=== PATIENT | female | born 1945 | race Caucasian/White ===

== ENCOUNTER → 2023-07-20 13:50 | Outpatient (REF) | payer OTHER, SELFPAY | LOC: WDC 13:50 | PROVIDERS: ATTENDING PHYSICIAN Family Medicine | DX: Z12.31 Encounter for screening mammogram for malignant neoplasm of breast (principal) | CPT/HCPCS: 77063; 77067 ==

== ENCOUNTER 2023-08-29 15:42 | Inpatient (IN) | payer OTHER, SELFPAY ==
[2023-08-29] VITALS (10 sets, daily range): BP systolic 101–157; BP diastolic 58–97; BMI 25.6
--- NOTE | 2023-08-29 10:12 | ED.GENMED ---
History of Present Illness
General
Chief Complaint: Fall
Source: patient
Time Seen by Provider: 08/29/23 10:08
History of Present Illness
History of Present Illness:
77yo right hand dominant female with a history of hypertension, hyperlipidemia, lung cancer, and gastroparesis presenting via EMS for evaluation after a fall. The fall occurred around 5 AM this morning. Patient states she does not remember the
fall and the only thing she remembers is waking up on the ground with a headache. She believes that she hit her head on the bedside table. She believes she rolled out of bed in her sleep. She denies any preceding dizziness, chest pain, shortness of
breath. She was able to get back in bed after the fall. Her only other complaints are right upper arm pain and mild neck discomfort. She denies any chest pain, abdominal pain, back pain, fevers, vomiting. She is not taking any blood thinners.
Patient lives alone.
Past History
Past History
ED Past Medical History: Cancer, GERD, HTN, Hypercholesterolemia, NIDDM and Other (Peripheral vascular disease, migraines, Crohn's, thalassemia)
ED Past Surgical History: Cholecystectomy and Other
Patient has exhibited threatening behavior?: No
PSI?: No
Social History
Tobacco: Former smoker
Alcohol: None
Drug: None
Personal:
Living: alone
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
Family History
Family History: Other (Noncontributory)
Phy Exam
Physical Exam
Physical Exam:
Patient awake, alert, talkative. No acute distress noted.
General Physical Exam
General Presentation: well appearing and no apparent distress
General Skin: warm and dry
General Habitus: normal and elderly
General Mental: alert
ENT Exam
ENT Exam: TM's normal (No hemotympanum) and normocephalic (No external signs of head trauma)
Additional ENT: Full ROM of cervical spine
Eye Exam
Eye Exam: PERRL
Cardiovascular Exam
Cardiovascular Exam: regular rate/rhythm and no murmur
Pulmonary Exam
Pulmonary Exam: lungs clear, no respiratory distress, no crackles and no wheezing
Gastrointestinal Exam
Gastrointestinal Exam: non tender, soft and non distended
Neurological Exam
Neurological Exam: alert and no motor deficits
Harvel Coma Scale
Eye Opening: Spontaneous
Verbal Response: Oriented
Motor Response: Obeys Commands
GCS Total Score: 15
Musculoskeletal Exam
Musculoskeletal Exam: other (R shoulder: No deformity or ecchymosis noted. ROM decreased 2/2 pain. +Generalized tenderness to R upper arm. 2+ radial pulse. ROM of elbow and wrist intact.)
Course
Orders/Labs/Results
Orders:
Orders
08/29/23 10:09
Electrocardiogram (*1) Urgent
Reason for Study: Other
Other Reason for Exam: Fall
CT Cervical Spine W/o Iv Contr Urgent
Comment:
Reason For Exam: Fall, neck pain
CT Head W/o Iv Contrast Urgent
Comment:
Reason For Exam: Fall, head strike
EKG- Treatment ONCE
CR Humerus - Right Min 2 View* Urgent
Comment:
Reason For Exam: Fall, injury
CR Shoulder - Right Min 2 View Urgent
Comment:
Reason For Exam: Fall, pain
08/29/23 10:10
Hydrocodone 5/APAP 325 [Henning 5/325] 1 tablet PO NOW STA
08/29/23 10:17
Complete Blood Count/With Diff Urgent
Comprehensive Metabolic Panel Urgent
Troponin I Urgent
08/29/23 10:43
CR Chest - 2 Views Urgent
Comment:
Reason For Exam: Fall
08/29/23 11:35
Sling Right-Treatment ONCE
08/29/23 12:06
PT Consult [Pt Eval And Treat] Urgent
Activity Level: Out of Bed- Ad [place]
08/29/23 12:07
Case Management Consult ONCE
Case Management Consult: Discharge Planning
08/29/23 13:59
Hydrocodone 5/APAP 325 [Henning 5/325] 1 tablet PO NOW STA
Ondansetron Injectable [Zofran] 4 mg IV NOW STA
08/29/23 15:26
Admit/Transfer Patient As Directed
Co-Sign Provider:
Level of Care: Inpatient admission
Assign to:: Medical/Surgical
Physician / Group: Cori
Diagnosis: Fall with amb dysfunction and rue fracture
Reason for Hospitalization: above
Expected length of stay greater than two midnights?: Yes
ELOS- Estimated Length of Stay in days: 2
I certify the patient meets the requirements for IP care: Yes
PRN Pain Medication Management As Directed
May give lesser potent ordered pain med per pt: Yes
preference::
Protocol:: Medication orders for pain may be administered in a
manner that supports deferring to patient preference
when the pt is:
-Requesting an ordered lesser potent pain medication.
Least to most potent pain medications are defined as:
acetaminophen < NSAID < tramadol < opioids (morphine,
oxycodone, hydromorphone).
- Requesting a lesser dose of the same medication IF
ORDERED.
- Requesting a less intrusive route of administration
if both routes are prescribed by the provider (PO <
IV).
08/29/23 15:28
Code Status As Directed
Resuscitation Status: Full Code
08/29/23 15:32
Enoxaparin Sodium [Lovenox] 40 mg SC NOW STA
08/29/23 16:00
Acetaminophen [Tylenol] 1,000 mg PO TID
Abnormal Lab Results
08/29/23
10:17
RBC 5.66 H 10^6/uL
(4.20-5.40)
MCV 69.8 L fL
(81.0-99.0)
MCH 23.3 L pg
(27.0-31.0)
Absolute Neuts (auto) 7.0 H 10^3/uL
(1.4-6.5)
Neutrophils % 76.5 H %
(42.2-75.2)
Lymphocytes % 16.2 L %
(20.5-51.1)
Glucose 105 H mg/dl
(70-99)
08/29/23 10:17
08/29/23 10:17
Vital Signs
Initial and Last Documented VS:
Initial Vital Signs
Pulse Resp BP Pulse Ox
94 18 157/97 99
08/29/23 09:56 08/29/23 09:56 08/29/23 09:56 08/29/23 09:56
Last Documented Vital Signs
Temp Pulse Resp BP Pulse Ox
98.4 F 81 16 101/66 99
08/29/23 10:00 08/29/23 14:00 08/29/23 14:00 08/29/23 14:00 08/29/23 12:15
MDM/Problems Addressed
Differential Diagnosis Includes:
77yoF here after a fall this morning. She only remembers waking up on the ground. She believes she rolled out of bed. +Head strike, c/o headache. No thinners. Also having R upper arm pain. No external signs of head trauma on exam. GCS is 15. Vital
signs stable. Differential diagnosis includes but is not limited to: mechanical fall, syncope, closed head injury, concussion, intracranial hemorrhage, fracture
Initial ED plan: Check cardiac labs, EKG, R humerus/shoulder x-rays, CT head, and CT cervical spine. Will give Henning for pain as she takes this at home.
*EKG
Interpreted by ED Provider?: Yes
EKG Intrepretation Date: 08/29/23
EKG Intrepretation Time: 11:01
Heart Rate: 81
Rate: normal
Rhythm: sinus and PVC's
[place]: normal axis
QRS Pattern: normal QRS
Ischemia: no ischemia
*Critical Care Note
Total Time (30-74mins, 75-104mins- exclusive of procedures): Not Applicable
Update Note
Update Note:
Imaging shows a proximal humerus fracture. No other traumatic injuries on imaging. Labs overall unremarkable. EKG shows NSR without ischemic changes and troponin is normal. Patient lives alone and uses a walker/cane at times. She was evaluated by
PT. Physical therapy recommending short term rehab. Case management unable to place patient today. She was admitted for further management.
ED Attending Note
-
Portions of this chart may have been created with voice recognition software.� Occasional wrong word or��sound alike� substitutions may have occurred due to the inherent limitations of voice recognition software.
Discharge Plan
Departure
Patient Disposition: Admit
Date of Disposition: 08/29/23
Time of Disposition: 13:54
Presentation/result/management discussed w/ accepting MD/DO: Hospitalist
Discharge Problem:
Closed fracture of right proximal humerus, Accidental fall from bed
Interventions
Interventions:
*Risk Screen - Suicide Last Done: 08/29/23 10:11
*General Assessment Last Done: 08/29/23 10:03
*Neglect/Abuse Screening Last Done: 08/29/23 10:11
ED- Fall Risk Assessment Last Done: 08/29/23 10:03
*ED COVID-19 Vaccine History Last Done: 08/29/23 10:11
ED-Musculoskeletal Assessment Last Done: 08/29/23 10:04
ED- Neurological Assessment Last Done: 08/29/23 10:03
ED-Skin Assessment Last Done: 08/29/23 10:04
[2023-08-29] MEDS: NORCO 5/325 1 TABLET PO ×2 (10:15→14:11)
[2023-08-29 10:39] LABS: % Basophils 0.5 % (0-2); % Eosinophils 0.1 % (0-6); % Immature Granulocytes 0.4 % (0-0.5); % Lymphocytes 16.2 % (20.5-51.1); % Monocytes 6.3 % (1.7-9.3); % Neutrophils 76.5 % (42.2-75.2); Absolute Basophils 0.1 10^3/uL (0-0.2); Absolute Lymphocytes 1.5 10^3/uL (1.2-3.4); Absolute Monocytes 0.6 10^3/uL (0.1-0.6); Hematocrit 39.5 % (37.0-47.0); Hemoglobin 13.2 g/dL (12.0-16.0); Mean Corp Hgb Conc. 33.4 g/dL (33.0-37.0); Mean Corpuscular Hgb 23.3 pg (27.0-31.0); Mean Corpuscular Volume 69.8 fL (81.0-99.0); Mean Platelet Volume 10.3 fL (7.4-10.4); Nucleated Red Blood Cells % 0 %; Platelet Count 276 10^3/uL (130-400); Red Blood Cell Count 5.66 10^6/uL (4.20-5.40); Red Cell Dist. Width 14.4 % (11.5-14.5); White Blood Cell Count 9.1 10^3/uL (4.8-10.8)
[2023-08-29 10:50] LABS: ALT (SGPT) 16 U/L (0-35); AST (SGOT) 21 U/L (14-36); Albumin 4.5 g/dl (3.5-5.0); Alkaline Phosphatase 100 U/L (38-126); Blood Urea Nitrogen 12 mg/dl (7-17); Calcium 9.9 mg/dl (8.4-10.2); Carbon Dioxide 25 mmol/L (22-30); Chloride 101 mmol/L (98-107); Glucose 105 mg/dl (70-99); Potassium 3.9 mmol/L (3.5-5.1); Sodium 136 mmol/L (135-145); Total Bilirubin 0.6 mg/dl (0.2-1.3); Total Protein 7.4 g/dl (6.3-8.2); eGFR > 60.00
[2023-08-29 11:05] LABS: Troponin I < 0.012 ng/ml
--- NOTE | 2023-08-29 14:07 | CM ---
CM following re: discharge planning.
CM consulted to assist pt with discharge planning.
Reviewed pt's chart, met with pt.
Pt is a 77 year old female, arrived to ED for evaluation after a fall.
Pt reports she lives alone in an apartment 1st floor, 13 steps to enter, has supportive daughter who works as RT at [employer]. Pt described herself as independent in all areas [employer], ambulated with a cane, daughter helps as needed.
PT evaluations noted - SNF level of care recommended. Pt is awre, expressed her agreement. A list of SNFs provided to the pt. Following SNFs preferred: [facility], [facility], [facility], [facility]. A referral to above SNFs made. Pt will need an auth from [facility]
insurance once SNF confirmed.
PCP: Marlon vergara
pharmacy: [facility].
D/C plan: preferred and accepted SNF.
CM will follow to assist pt with discharge to a preferred SNF.
[2023-08-29] MEDS: ZOFRAN 4 MG IV (14:11)
[2023-08-29] MEDS: LOVENOX 40 MG SC (15:52)
--- NOTE | 2023-08-29 16:52 | HPS.HSE ---
Family Physician
-
Family Physician: Marlon Hunter
Chief Complaint
-
Fall with right upper extremity pain.
History of Present Illness
Patient is 77-year-old female with history of lung carcinoma status post lobectomy, gastroparesis, hypertension, migraine who presents to the emergency room after fall. Patient describes falling of the bed while asleep at night. She could not
recall incident, although woke up on the floor with pain in the right upper extremity. She admits striking her head against the table. Otherwise patient was in her normal state of health prior to incident. She lives independently at home.
In the emergency room patient was found to be afebrile, hemodynamically stable with no neurologic abnormalities.
Additional workup revealed right humerus fracture. Patient was placed in sling. Elevated with physical therapy with recommendation of continuous assessment and placement to fdc facility. Patient complains of significant pain at the
right shoulder and right upper extremity while in sling.
Medical History
Past Medical History
Past Medical History: Reports HTN and Other (Lung carcinoma status post lobectomy. Gastroparesis.)
Past Surgical History: Reports Other (Lobectomy)
Social History
Tobacco: Former Smoker
Alcohol: None
Drug: None
Personal: Single
Living: Alone
Employment: Retired
Family History
Family History: Not pertinent
Allergies / Home Medications
Allergies reflects when Allergies were last updated in [facility].
Home Medications with original date entered in [facility]
Allergy/Medication List:
Allergies
Allergy/AdvReac Type Severity Reaction Status Date / Time
cephalexin [From Keflex] Allergy Hives Verified 02/22/23 03:14
hydromorphone HCl Allergy Migraines Verified 02/22/23 03:14
[From Dilaudid]
Influenza Virus Vaccines Allergy Unknown Verified 02/22/23 03:14
NSAIDS (Non-Steroidal Allergy Migraines Verified 02/22/23 03:14
Anti-Inflamma
[Nsaids]
Qmlgenm-IAH-XvH Reductase Allergy acute Verified 02/22/23 03:14
Inhibitor inflammation
[Tgenbgb-Hnm-Uaa Reductase of liver
Inhibitor]
Sulfa (Sulfonamide Allergy Hives Verified 02/22/23 03:14
Antibiotics)
Home Medications
amlodipine 10 mg tablet 10 mg PO DAILY Blood pressure 11/20/09
losartan 25 mg tablet 25 mg PO BID Blood pressure 11/18/21
ondansetron 4 mg disintegrating tablet 8 mg PO Q6HPRN PRN nausea and vomiting 01/07/22
lorazepam 0.5 mg tablet 0.5 mg PO BIDPRN PRN Anxiety 02/22/23
acetaminophen 500 mg tablet (Tylenol Extra Strength) 500 mg PO Q6HPRN PRN mild pain 08/29/23
hydrocodone 5 mg-acetaminophen 325 mg tablet 1 tab PO BIDPRN PRN moderate pain 08/29/23
magnesium hydroxide 400 mg/5 mL oral suspension (Milk of Magnesia) 30 ml PO DAILYPRN PRN constipation 08/29/23
pantoprazole 40 mg tablet,delayed release (Protonix) 40 mg PO DAILY Gastrointestinal Issue 08/29/23
polyethylene glycol 3350 17 gram oral powder packet 17 g PO HS Constipation 08/29/23
potassium 95 mg tablet 900 mg PO DAILY Supplement 08/29/23
Review of Systems
-
A 12 point ROS was completed and negative except as noted: Yes
Physical Exam
Vital Signs
Vital Signs
Temp Pulse Resp BP Pulse Ox
98.4 F 81 16 101/66 99
08/29/23 10:00 08/29/23 14:00 08/29/23 14:00 08/29/23 14:00 08/29/23 12:15
Physical Exam
General: Well Developed, Well Nourished and No Apparent Distress
HEENT: NormoCephalic, Moist mucous membranes and Atraumatic
Respiratory: Clear
Cardiac: S1/S2 and Regular Rhythm; No Murmur or Rub
GI: Soft, Non Tender, Non Distended and Normal Bowel Sounds; No Organomegaly
Rectal: Deferred by Provider
Musculoskeletal: No Clubbing, No Cyanosis and No Edema
Skin: No Rash
Neuro: Nonfocal/grossly intact
Laboratory Results
-
08/29/23 10:17
08/29/23 10:17
Laboratory Results
Total Bilirubin 0.6 mg/dl (0.2-1.3) 08/29/23 10:17
AST 21 U/L (14-36) 08/29/23 10:17
ALT 16 U/L (0-35) 08/29/23 10:17
Alkaline Phosphatase 100 U/L (38-126) 08/29/23 10:17
Troponin I < 0.012 ng/ml 08/29/23 10:17
Impression/Plan
-
IMPRESSION:
Mechanical fall with right humerus fracture.
Persistent pain
Ambulatory dysfunction
Failure to thrive
Conditions prior to admission:
History of toxic metabolic encephalopathy manifested with acute visual hallucinations while on tramadol (admission)
History of small chronic periventricular infarct in the right basal ganglia/chronic lacunar infarct.
Lung carcinoma status post left upper lobe resection January 2023.
History of gastroparesis.
Migraine
Essential hypertension
Dyslipidemia.
PLAN:
Right proximal humerus fracture
Sling applied
Orthopedic consultation
Pain control 1 g of Tylenol 3 times daily with addition of oxycodone.
Patient has prior history of metabolic encephalopathy related to tramadol.
Physical therapy evaluation
Possible placement to fdc facility for rehab
History of lung carcinoma status post upper lobe resection 02/04.
Respiratory status stable.
Essential hypertension. Continue amlodipine, losartan.
Gastroparesis.
Regular diet.
Continue Zofran and PPI
Full code
DVT prophylaxis Lovenox
[2023-08-29] MEDS: TYLENOL PO (17:21)
--- NOTE | 2023-08-29 17:23 | PTCARENOTE ---
Pt arrived to [facility] from ED via stretcher. Pt RUE in sling, +radial pulse. Patient states 10/10 pain in RUE and states she is mildly nauseous. Oriented to call ivan and room, bed locked and in lowest position, call ivan within reach.
[2023-08-29] MEDS: ROXICODONE 5 MG PO (17:49)
[2023-08-29] MEDS: NORVASC 10 MG PO (17:52)
[2023-08-29] MEDS: TYLENOL 1000 MG PO (21:17)
[2023-08-29] MEDS: COZAAR 25 MG PO (21:18)
[2023-08-29] MEDS: ATIVAN 0.5 MG PO (21:18)
[2023-08-29] MEDS: MIRALAX PO (21:23)
[2023-08-30] MEDS: ZOFRAN ODT (ORALLY DISINTEGRATING) 8 MG PO (02:55)
[2023-08-30] MEDS: ROXICODONE 5 MG PO (02:55)
--- NOTE | 2023-08-30 04:28 | DOWNTIME ---
There was a [employer] Advisor Downtime on 08/30/2023 from 0100 to 08/30/2023 at 0255. Downtime documentation of patient's care, including medication administrations, has been reconciled in the electronic record per guidelines. Refer to the
patient's paper chart under the miscellaneous tab to see printed paper medication records and downtime forms.
[2023-08-30] MEDS: TYLENOL 1000 MG PO (07:07)
--- NOTE | 2023-08-30 07:22 | CON.ORTHO ---
Consultation
-
Date/Time Consultation Requested: 08/29/23 @17:30
Date/Time Consultation Performed: 08/30/23 @7am
Requesting Provider: Cori
Performing Provider: Joyce Tomlin PA-C/Abdelrahman Decker MD
Reason for Consultation: right humerus fracture
Consultation - Orthopedics
History
HPI: 77yo female admitted to the hospital following a fall out of bed yesterday morning. Patient reports that she is not sure exactly what happened but she woke up on the floor. She may have possibly hit her head and she did have a workup in the ER
which was negative. She was complaining of right arm pain as well. Xrays showed right proximal humerus fracture. She denies any other injuries or any numbness/tingling. She is right hand dominant. She did get good relief of pain last night with
Tylenol and Ativan
PAST MEDICAL HISTORY: lung cancer, gastroparesis, HTN, migraine
PAST SURGICAL HISTORY: left upper lobectomy January 2023, bile duct stent placement
SOCIAL HISTORY: former smoker, denies alcohol. occasionally ambulate with a cane. lives alone
FAMILY HISTORY: Non contributory
REVIEW OF SYSTEMS: 12 point review of systems obtained and negative except those mentioned in the HPI
Allergies / Home Medications
Allergy/AdvReac Type Severity Reaction Status Date / Time
cephalexin [From Keflex] Allergy Hives Verified 02/22/23 03:14
Influenza Virus Vaccines Allergy Unknown Verified 02/22/23 03:14
NSAIDS (Non-Steroidal Allergy Migraines Verified 02/22/23 03:14
Anti-Inflamma
[Nsaids]
Dlbkxro-DPE-DdG Reductase Allergy acute Verified 02/22/23 03:14
Inhibitor inflammation
[Wmgwmox-Urk-Xzv Reductase of liver
Inhibitor]
Sulfa (Sulfonamide Allergy Hives Verified 02/22/23 03:14
Antibiotics)
tramadol AdvReac Severe Unknown Verified 08/29/23 20:45
�Medication �Instructions �Recorded
amlodipine 10 mg tablet 10 mg PO DAILY Blood pressure 11/20/09
losartan 25 mg tablet 25 mg PO BID Blood pressure 11/18/21
ondansetron 4 mg disintegrating 8 mg PO Q6HPRN PRN nausea and 01/07/22
tablet vomiting
lorazepam 0.5 mg tablet 0.5 mg PO BIDPRN PRN Anxiety 02/22/23
acetaminophen 500 mg tablet 500 mg PO Q6HPRN PRN mild pain 08/29/23
(Tylenol Extra Strength)
hydrocodone 5 mg-acetaminophen 325 1 tab PO BIDPRN PRN moderate pain 08/29/23
mg tablet
magnesium hydroxide 400 mg/5 mL 30 ml PO DAILYPRN PRN constipation 08/29/23
oral suspension (Milk of Magnesia)
pantoprazole 40 mg tablet,delayed 40 mg PO DAILY Gastrointestinal 08/29/23
release (Protonix) Issue
polyethylene glycol 3350 17 gram 17 g PO HS Constipation 08/29/23
oral powder packet
potassium 95 mg tablet 900 mg PO DAILY Supplement 08/29/23
Vital Signs / Lab Results
Temp Pulse Resp BP Pulse Ox
98.9 F 78 20 119/58 95
08/29/23 23:25 08/29/23 23:25 08/29/23 23:25 08/29/23 23:25 08/29/23 23:25
08/29/23 10:17
08/29/23 10:17
RADIOGRAPHIC FINDINGS:
Xrays right humerus and shoulder show mildly impacted fracture of the neck of the proximal right humerus. Cannot exclude fracture extension into the right humeral head.
PHYSICAL EXAM:
General: no acute distress
HEENT: NCAT, sclera anicteric, normal hearing
Heart: No JVD
Lungs: normal work of breathing on room air
MSK: Focused exam of right upper extremity with skin intact. no discolorations. mild edema. +TTP over proximal humerus and upper arm. ROM shoulder deferred. Full ROM of elbow, wrist, and hand. Sensation intact to light touch. Cap refill <2secs
Assessment / Plan
ASSESSMENT: 77yo female with right proximal humerus fracture following a fall
PLAN: Unfortunately, Ms. Webber has sustained a right proximal humerus fracture following her fall yesterday morning. This is amenable to nonoperative management. She is to be non weight bearing to the right arm. She is to wear the sling at all
times, removing for dressing and bathing only. OK for range of motion of hand, wrist, and elbow. PT/OT evaluation. Continue with pain management as needed. Ice to shoulder as needed. Case management consult for discharge planning. Follow up
outpatient in one week for repeat xrays. Orthopedics with sign off for now. Please reach out with any questions or concerns.
[2023-08-30 07:36] VITALS: BP 110/71
[2023-08-30 08:04] VITALS: BP 106/66; BP 109/63; BP 110/71; PULSE 84; PULSE 88; PULSE 99
[2023-08-30] MEDS: NORVASC 10 MG PO (08:15)
[2023-08-30] MEDS: PROTONIX 40 MG PO (08:15)
[2023-08-30] MEDS: KCL 10 MEQ PO (08:15)
[2023-08-30] MEDS: COZAAR 25 MG PO ×2 (08:15→20:18)
[2023-08-30] MEDS: ATIVAN 0.5 MG PO ×2 (09:36→20:11)
[2023-08-30 11:07] VITALS: BP 119/77; BP 123/76
[2023-08-30 11:29] VITALS: BP 119/77; BP 123/76; PULSE 95; O2SAT 96
[2023-08-30] MEDS: NORCO 5/325 1 TABLET PO (13:17)
[2023-08-30 15:58] VITALS: BP 112/61
--- NOTE | 2023-08-30 15:59 | CM ---
Reviewed the chart notes and spoke with the patient at the bedside. PT/OT recommending SNF at this time. Discussed with the patient. Patient would have preferred home, but is agreeable to short term SNF/rehab prior to transitioning home. Patient
agreeable to referrals being sent in the area. Referrals with [facility] sent. CM continues to be available to patient/family and is monitoring medical plan for needs at discharge.
Plan: Discharge to SNF/rehab once bed found and precert obtained.
--- NOTE | 2023-08-30 17:11 | W.PN.HOSP.TC ---
Today's Communication/Plan
-
PT/OT
[facility]
Assessment / Plan
Assessment / Plan
IMPRESSION:
Mechanical fall with right humerus fracture.
Persistent pain
Ambulatory dysfunction
Failure to thrive
Conditions prior to admission:
History of toxic metabolic encephalopathy manifested with acute visual hallucinations while on tramadol (admission)
History of small chronic periventricular infarct in the right basal ganglia/chronic lacunar infarct.
Lung carcinoma status post left upper lobe resection January 2023.
History of gastroparesis.
Migraine
Essential hypertension
Dyslipidemia.
PLAN:
Right proximal humerus fracture
Sling applied
Orthopedic consultation appreciated with recommendation of conservative management
Pain control with hydrocodone and acetaminophen
Patient has prior history of metabolic encephalopathy related to tramadol.
Physical therapy evaluation
Possible placement to penitentiary facility for rehab
History of lung carcinoma status post upper lobe resection 02/04.
Respiratory status stable.
Essential hypertension. Continue amlodipine, losartan.
Gastroparesis.
Regular diet.
Continue Zofran and PPI
Full code
DVT prophylaxis Lovenox
Anticipated Discharge: 24 - 48 hours
Subjective/Interval History
-
Date of Service: August 30, 2023
Objective Data
-
Vital Signs:
Vital Signs
Temp Pulse Resp BP Pulse Ox
99.0 F 79 14 112/61 96
08/30/23 15:58 08/30/23 15:58 08/30/23 15:58 08/30/23 15:58 08/30/23 15:58
Physical Exam
-
General: Well Developed and No Apparent Distress
HEENT: Normocephalic, Atraumatic and Moist Mucous Membranes
Respiratory: Clear to Auscultation
Cardiac: Regular Rhythm and S1/S2; Negative Murmur, Rub or Gallop
GI: Soft, Nontender, Nondistended and Normal Bowel Sounds; Negative Organomegaly
Rectal: Deferred by Provider
Musculoskeletal: No Clubbing, No Cyanosis and No Edema
Skin: Negative Rash
Neuro: Nonfocal/Grossly Intact
[2023-08-30] MEDS: MILK OF MAGNESIA 30 ML PO (18:10)
[2023-08-30] MEDS: MIRALAX 17 GRAMS PO (20:11)
[2023-08-30] MEDS: TYLENOL 500 MG PO (20:15)
[2023-08-30 23:59] VITALS: BP 124/62
[2023-08-31] MEDS: ZOFRAN ODT (ORALLY DISINTEGRATING) 8 MG PO ×2 (05:50→19:30)
[2023-08-31] MEDS: NORCO 5/325 1 TABLET PO ×2 (05:55→19:30)
[2023-08-31 07:53] VITALS: BP 124/68
[2023-08-31] MEDS: KCL 10 MEQ PO (08:08)
[2023-08-31] MEDS: PROTONIX 40 MG PO (08:08)
[2023-08-31] MEDS: NORVASC 10 MG PO (08:12)
[2023-08-31] MEDS: COZAAR 25 MG PO ×2 (08:12→19:29)
--- NOTE | 2023-08-31 10:09 | CM ---
Addendum entered by Albertina Gomez RN 08/31/23 15:00:
Received call from [facility], [facility] is [id number] and the patient does not have [id number] benefits. CM asked to have list of area SNFs in-network e-mailed. Received e-mail and discussed with the patient of area SNFs.
Patient wants to stay in [facility]. [facility] able to accept. Patient in agreement. Call placed to [facility] ([facility]) [phone] option #3 and [facility]
Once auth obtained patient able to be transported by her daughter.
Addendum entered by Albertina Gomez RN 08/31/23 11:21:
Reviewed the chart notes and spoke with the patient at the bedside. IMM signed and placed on chart.
Original Note:
Reviewed the chart notes. [facility] able to accept the patient. Auth started in [employer]. Pended # [id number]. Clinicals faxed to [phone].
[place] [facility] NPI # [id number]
Dr. Crow Murray NPI # [id number]
[2023-08-31 11:14] VITALS: BP 115/68; BP 119/77; BP 125/77; PULSE 85; PULSE 90; PULSE 99
[2023-08-31] MEDS: TYLENOL 500 MG PO (11:54)
[2023-08-31] MEDS: ATIVAN 0.5 MG PO (11:58)
[2023-08-31 12:18] VITALS: BP 141/75; PULSE 86
[2023-08-31 12:32] VITALS: BP 141/75; PULSE 86
--- NOTE | 2023-08-31 13:58 | W.PN.HOSP.TC ---
Today's Communication/Plan
-
dc
Assessment / Plan
Assessment / Plan
IMPRESSION:
Mechanical fall with right humerus fracture.
Persistent pain
Ambulatory dysfunction
Failure to thrive
Conditions prior to admission:
History of toxic metabolic encephalopathy manifested with acute visual hallucinations while on tramadol (admission)
History of small chronic periventricular infarct in the right basal ganglia/chronic lacunar infarct.
Lung carcinoma status post left upper lobe resection January 2023.
History of gastroparesis.
Migraine
Essential hypertension
Dyslipidemia.
PLAN:
Right proximal humerus fracture
Sling applied
Orthopedic consultation appreciated with recommendation of conservative management
Pain control with hydrocodone and acetaminophen
Patient has prior history of metabolic encephalopathy related to tramadol.
Physical therapy evaluation
Need placement to [facility] facility for rehab
History of lung carcinoma status post upper lobe resection 02/04.
Respiratory status stable.
Essential hypertension. Continue amlodipine, losartan.
Gastroparesis.
Regular diet.
Continue Zofran and PPI
Full code
DVT prophylaxis Lovenox
Medically stable for discharge.
Total time of dc 32 min
Anticipated Discharge: Today
Subjective/Interval History
-
Date of Service: August 31, 2023
Pain from fracture site is okay
Denies any tingling in the right hand or the arm.
No chest pain or shortness of breath
Objective Data
-
Vital Signs:
Vital Signs
Temp Pulse Resp BP Pulse Ox
98.6 F 82 16 120/72 97
08/31/23 07:53 08/31/23 08:12 08/31/23 07:53 08/31/23 08:12 08/31/23 07:53
I&O
08/30/23 08/31/23 09/01/23
06:59 06:59 06:59
Intake Total 480 / 480
Balance 480 / 480
Review of Systems
-
Constitutional: Denies Fever
EENT: Denies Sore Throat
Respiratory: Denies Cough or Trouble Breathing
Abdomen/GI: Denies Abdominal Pain, Nausea or Vomiting
Neuro: Denies Dizzy
Physical Exam
-
General: No Apparent Distress
HEENT: Moist Mucous Membranes
Respiratory: Non Labored Respirations; Negative Accessory Resp Muscle Use
Cardiac: Regular Rhythm and S1/S2
Musculoskeletal: Other (Right arm in the sling-palpable radial pulse. No swelling. Sensation intact)
Psych: Calm
--- NOTE | 2023-08-31 14:02 | W.DS.TRANS ---
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
-
Discharge Instructions:
Discharge Diagnosis/Procedures Right humerus fracture after fall -non surgical
Diet Regular
Activity As tolerated
Driving Restrictions No driving
Bathing Restrictions None
Other Services PT,OT
Instructions:
Stand-Alone Forms:
Changes to Home Medications: No
Discharge Medications:
DC Medications w/original date entered in [employer]
amlodipine 10 mg tablet 10 mg PO DAILY Blood pressure 11/20/09
losartan 25 mg tablet 25 mg PO BID Blood pressure 11/18/21
ondansetron 4 mg disintegrating tablet 8 mg PO Q6HPRN PRN nausea and vomiting 01/07/22
lorazepam 0.5 mg tablet 0.5 mg PO BIDPRN PRN Anxiety 02/22/23
acetaminophen 500 mg tablet (Tylenol Extra Strength) 500 mg PO Q6HPRN PRN mild pain 08/29/23
magnesium hydroxide 400 mg/5 mL oral suspension (Milk of Magnesia) 30 ml PO DAILYPRN PRN constipation 08/29/23
pantoprazole 40 mg tablet,delayed release (Protonix) 40 mg PO DAILY Gastrointestinal Issue 08/29/23
polyethylene glycol 3350 17 gram oral powder packet 17 g PO HS Constipation 08/29/23
potassium 95 mg tablet 900 mg PO DAILY Supplement 08/29/23
hydrocodone 5 mg-acetaminophen 325 mg tablet 1 tab PO BIDPRN PRN moderate pain #12 tabs 08/31/23
Home Medication Changes
Pending Results: No
[2023-08-31 16:00] VITALS: BP 130/72
[2023-08-31] MEDS: MIRALAX PO (21:28)
[2023-08-31] MEDS: MAALOX 30 ML PO (22:14)
[2023-08-31 23:36] VITALS: BP 125/61
[2023-09-01] MEDS: NORCO 5/325 1 TABLET PO (04:01)
[2023-09-01] MEDS: ATIVAN 0.5 MG PO (04:01)
[2023-09-01 07:40] VITALS: BP 105/67
--- NOTE | 2023-09-01 09:21 | CM ---
Addendum entered by Albertina Gomez RN 09/01/23 10:58:
Patient has decided to go home with VN. Selected [facility]. Referral manually faxed to [phone]. Patient's daughter to picking table worker.
Original Note:
Reviewed the chart notes. CM received message from [facility] approval for [facility] Auth# [id number] (08/30-09/03); NRD 09/03; fax clinicals to Elana Hobbs ([phone]); reference #[id number].
[facility] Patient's daughter to provide transportation.
Call report to: [phone]
Fax report to: [phone]
[2023-09-01] MEDS: COZAAR 25 MG PO (09:25)
[2023-09-01] MEDS: NORVASC 10 MG PO (09:25)
[2023-09-01] MEDS: MILK OF MAGNESIA 30 ML PO (09:25)
[2023-09-01] MEDS: KCL 10 MEQ PO (09:25)
--- NOTE | 2023-09-01 10:38 | W.PN.HOSP.TC ---
Today's Communication/Plan
-
DC
Assessment / Plan
Assessment / Plan
IMPRESSION:
Mechanical fall with right humerus fracture.
Ambulatory dysfunction
Failure to thrive
Conditions prior to admission:
History of toxic metabolic encephalopathy manifested with acute visual hallucinations while on tramadol (admission)
History of small chronic periventricular infarct in the right basal ganglia/chronic lacunar infarct.
Lung carcinoma status post left upper lobe resection January 2023.
History of gastroparesis.
Migraine
Essential hypertension
Dyslipidemia.
PLAN:
Right proximal humerus fracture
Sling applied
Orthopedic consultation appreciated with recommendation of conservative management
Pain control with hydrocodone and acetaminophen. cw Laxative tx. [place] today.
Patient has prior history of metabolic encephalopathy related to tramadol.
cw Physical therapy evaluation
[facility]
History of lung carcinoma status post upper lobe resection 02/04.
Respiratory status stable.
Essential hypertension. Continue amlodipine, losartan.
Gastroparesis.
Regular diet.
Continue Zofran and PPI
Full code
DVT prophylaxis Lovenox
Medically stable for discharge.
Total time of dc 32 min
Anticipated Discharge: Today
Subjective/Interval History
-
Date of Service: September 01, 2023
No overnight events
Pain from fracture site is ok
Objective Data
-
Vital Signs:
Vital Signs
Temp Pulse Resp BP Pulse Ox
98.3 F 80 18 105/67 95
08/31/23 23:36 09/01/23 07:40 09/01/23 07:40 09/01/23 07:40 09/01/23 07:40
I&O
08/31/23 09/01/23 09/02/23
06:59 06:59 06:59
Intake Total 480 / 480 660 / 660
Balance 480 / 480 660 / 660
Review of Systems
-
Respiratory: Denies Trouble Breathing
Cardiac: Denies Chest Pain
Abdomen/GI: Reports Constipated; Denies Nausea or Vomiting
Neuro: Denies Dizzy
Physical Exam
-
General: No Apparent Distress
HEENT: Moist Mucous Membranes
Respiratory: Non Labored Respirations; Negative Accessory Resp Muscle Use
Cardiac: Regular Rhythm and S1/S2
GI: Soft
Neuro: AO x 3
Psych: Calm; Negative Confused
[2023-09-01] MEDS: PROTONIX PO (10:41)
[2023-09-01] MEDS: DULCOLAX 10 MG PO (10:47)
[2023-09-01] MEDS: PROTONIX 20 MG PO (10:58)
== END 2023-09-01 12:35 | disposition home health service (06) | DRG 563 ==
LOC: 2 SOUTH 15:42
PROVIDERS: Physician Assistant; ADMITTING PHYSICIAN Internal Medicine; ATTENDING PHYSICIAN Internal Medicine; CONSULT PHYSICIAN Specialist; EMERGENCY PHYSICIAN Emergency Medicine; FAMILY PHYSICIAN Family Medicine
DX: S42.201A Unspecified fracture of upper end of right humerus, initial encounter for closed fracture (principal); K50.90 Crohn's disease, unspecified, without complications; R51.9 Headache, unspecified; M79.621 Pain in right upper arm; E11.43 Type 2 diabetes mellitus with diabetic autonomic (poly)neuropathy; E11.51 Type 2 diabetes mellitus with diabetic peripheral angiopathy without gangrene; K21.9 Gastro-esophageal reflux disease without esophagitis; M54.2 Cervicalgia; I10 Essential (primary) hypertension; K31.84 Gastroparesis; R62.7 Adult failure to thrive; E78.00 Pure hypercholesterolemia, unspecified; W06.XXXA Fall from bed, initial encounter; Y93.84 Activity, sleeping; Z60.2 Problems related to living alone; Y92.003 Bedroom of unspecified non-institutional (private) residence as the place of occurrence of the external cause; Z87.891 Personal history of nicotine dependence; Z85.118 Personal history of other malignant neoplasm of bronchus and lung; Z90.2 Acquired absence of lung [part of]; Z88.6 Allergy status to analgesic agent; Z88.1 Allergy status to other antibiotic agents; Z88.5 Allergy status to narcotic agent; Z88.2 Allergy status to sulfonamides; Z88.7 Allergy status to serum and vaccine; Z68.25 Body mass index [BMI] 25.0-25.9, adult
CPT/HCPCS: 70450; 71046; 72125; 73030; 73060; 80053; 84484; 85025; 93005; 96374; 97116; 97166; 97530; 97535; 99285

== ENCOUNTER 2023-09-11 22:37 | Observation (INO) | payer OTHER, SELFPAY ==
[2023-09-11 16:16] VITALS: BP 138/84
[2023-09-11] MEDS: ROXICODONE 5 MG PO (18:19)
[2023-09-11 19:33] VITALS: BP 165/94
--- NOTE | 2023-09-11 19:33 | ED.GENMED ---
History of Present Illness
General
Chief Complaint: Musculo-Skeletal Complaint
Time Seen by Provider: 09/11/23 17:41
History of Present Illness
History of Present Illness:
77-year-old female presents to the emergency department for evaluation of low back and right hip pain progressively worsening over the past several weeks. She was just admitted to this hospital for various reasons but among other was an acute right
proximal humerus fracture. She is attempting to manage herself at home but due to the increasing back pain and continued right arm pain she has been unable to ambulate herself to the bathroom. She is on hydrocodone 5 mg without pain relief. Was
recommended to go to alf facility for rehab at time of discharge from hospital stay 10 days ago but states she declined due to insurance issues however at this time she is reconsidering that decision
Past History
Past History
ED Past Medical History: Cancer, GERD, HTN, Hypercholesterolemia, NIDDM and Other (Peripheral vascular disease, migraines, Crohn's, thalassemia)
ED Past Surgical History: Cholecystectomy and Other
Patient has exhibited threatening behavior?: No
PSI?: No
Social History
Tobacco: Former smoker
Alcohol: None
Drug: None
Personal:
Living: alone
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
Family History
Family History: Other (Noncontributory)
Review of Systems
Review of Systems
Allergies reviewed?: Yes
All Other Systems: ROS reviewed and negative except as documented in HPI and ROS
Phy Exam
Physical Exam
Physical Exam:
GEN: Well appearing, NAD, WDWN
HEENT: Oral mucosa moist, no scleral icterus
Cardiac: Regular rate
Lung: No respiratory distress, no tachypnea
MSK: No gross deformity or injuries. Right hip range of motion is normal in all rivers with no elicited pain, negative straight leg raise test. Patellar reflexes 2+ bilaterally. Patient is unable to maintain an erect posture secondary to low back
pain
Skin: Good color, no pallor or jaundice, no rashes
Neuro: AO x3, moves all extremities freely
Psych: Calm, cooperative
Course
Orders/Labs/Results
Orders:
Orders
09/11/23 16:21
CR Hip - RT w/wo Pel 2-3 Vw* Urgent
Comment:
Reason For Exam: fall, pain
Include a pelvis x-ray?: Yes
09/11/23 17:39
Lidocaine [Lidocaine 4% Patch] 1 patch TOPICAL NOW STA
Apply Lidocaine patch(s) to:: R flank
09/11/23 17:40
Acetaminophen [Tylenol] 650 mg PO NOW STA
09/11/23 17:56
Lidocaine [Lidocaine 4% Patch] 1 patch TOPICAL NOW STA
Apply Lidocaine patch(s) to:: low back
Oxycodone [Roxicodone] 5 mg PO NOW STA
09/11/23 20:18
Complete Blood Count/With Diff Urgent
Comprehensive Metabolic Panel Urgent
09/11/23 21:01
Morphine Sulfate 4 mg IV NOW STA
Abnormal Lab Results
09/11/23
20:18
MCV 69.9 L fL
(81.0-99.0)
MCH 23.4 L pg
(27.0-31.0)
RDW 14.8 H %
(11.5-14.5)
Creatinine 0.5 L mg/dL
(0.6-1.0)
Glucose 113 H mg/dl
(70-99)
Calcium 10.4 H mg/dl
(8.4-10.2)
Alkaline Phosphatase 130 H U/L
(38-126)
09/11/23 20:18
09/11/23 20:18
Vital Signs
Initial and Last Documented VS:
Initial Vital Signs
Temp Pulse Resp BP Pulse Ox
98.1 F 91 18 138/84 99
09/11/23 16:16 09/11/23 16:16 09/11/23 16:16 09/11/23 16:16 09/11/23 16:16
Last Documented Vital Signs
Temp Pulse Resp BP Pulse Ox
98.1 F 89 20 151/79 96
09/11/23 16:16 09/11/23 19:33 09/11/23 19:33 09/11/23 21:24 09/11/23 21:25
MDM/Problems Addressed
MDM/Problems Addressed:
Patient is unable to function independently at home given her severe low back pain coupled with her immobility of the right upper extremity from prior fracture. Patient would prefer rehab placement, this is not unreasonable at this time. Will
admit for PT and OT/case management
*Critical Care Note
Total Time (30-74mins, 75-104mins- exclusive of procedures): Not Applicable
ED Attending Note
-
Portions of this chart may have been created with voice recognition software.� Occasional wrong word or��sound alike� substitutions may have occurred due to the inherent limitations of voice recognition software.
Discharge Plan
Departure
Patient Disposition: Admit
Date of Disposition: 09/11/23
Time of Disposition: 21:15
Presentation/result/management discussed w/ accepting MD/DO: Hospitalist
Discharge Problem:
Closed fracture of proximal end of right humerus, Low back pain, Ambulatory dysfunction
Prescriptions:
No Action
amlodipine 10 MG tablet
10 mg PO DAILY
losartan 25 mg tablet
25 mg PO BID
ondansetron 4 mg tablet,disintegrating
4 mg PO Q6HPRN PRN (Reason: nausea and vomiting)
lorazepam 0.5 mg tablet
0.5 mg PO BIDPRN PRN (Reason: Anxiety)
acetaminophen [Tylenol Extra Strength] 500 mg Tablet
500 mg PO Q6HPRN PRN (Reason: mild pain)
potassium 95 mg Tablet
95 mg PO DAILY
magnesium hydroxide [Milk of Magnesia] 400 mg/5 mL Suspension
30 ml PO DAILYPRN PRN (Reason: constipation)
pantoprazole [Protonix] 40 mg tablet,delayed release (DR/EC)
20 mg PO BID Qty: 0 0RF
aspirin 81 mg Tablet,Chewable
81 mg PO DAILY
hydrocodone-acetaminophen 5-325 mg tablet
1 tab PO BID
Referrals:
Marlon Hunter MD [Family Provider] -
Interventions
Interventions:
*Risk Screen - Suicide Last Done: 09/11/23 19:36
*General Assessment Last Done: 09/11/23 16:16
*Neglect/Abuse Screening Last Done: 09/11/23 19:33
*ED COVID-19 Vaccine History Last Done: 09/11/23 16:16
ED-Musculoskeletal Assessment Last Done: 09/11/23 19:33
Discharge Date and Time
Print Language: TURKISH
[2023-09-11 20:23] LABS: % Basophils 0.9 % (0-2); % Eosinophils 1.8 % (0-6); % Immature Granulocytes 0.1 % (0-0.5); % Lymphocytes 37.5 % (20.5-51.1); % Monocytes 5.5 % (1.7-9.3); % Neutrophils 54.2 % (42.2-75.2); Absolute Basophils 0.1 10^3/uL (0-0.2); Absolute Eosinophils 0.1 10^3/uL (0-0.7); Absolute Lymphocytes 2.9 10^3/uL (1.2-3.4); Absolute Monocytes 0.4 10^3/uL (0.1-0.6); Absolute Neutrophils 4.2 10^3/uL (1.4-6.5); Hematocrit 37.3 % (37.0-47.0); Hemoglobin 12.5 g/dL (12.0-16.0); Mean Corp Hgb Conc. 33.5 g/dL (33.0-37.0); Mean Corpuscular Hgb 23.4 pg (27.0-31.0); Mean Corpuscular Volume 69.9 fL (81.0-99.0); Mean Platelet Volume 9.5 fL (7.4-10.4); Nucleated Red Blood Cells % 0 %; Platelet Count 380 10^3/uL (130-400); Red Blood Cell Count 5.34 10^6/uL (4.20-5.40); Red Cell Dist. Width 14.8 % (11.5-14.5); White Blood Cell Count 7.8 10^3/uL (4.8-10.8)
[2023-09-11 20:54] LABS: ALT (SGPT) 13 U/L (0-35); AST (SGOT) 21 U/L (14-36); Albumin 4.6 g/dl (3.5-5.0); Alkaline Phosphatase 130 U/L (38-126); Blood Urea Nitrogen 12 mg/dl (7-17); Calcium 10.4 mg/dl (8.4-10.2); Carbon Dioxide 23 mmol/L (22-30); Chloride 103 mmol/L (98-107); Glucose 113 mg/dl (70-99); Potassium 3.8 mmol/L (3.5-5.1); Sodium 138 mmol/L (135-145); Total Bilirubin 0.8 mg/dl (0.2-1.3); Total Protein 7.7 g/dl (6.3-8.2); eGFR > 60.00
[2023-09-11] MEDS: MORPHINE SULFATE 4 MG IV (21:13)
[2023-09-11 21:24] VITALS: BP 151/79
[2023-09-11 21:27] VITALS: BMI 24.6
--- NOTE | 2023-09-11 21:41 | HPS.HSE ---
Addendum entered and electronically signed by Luis Enrique Stahl DO 09/11/23 23:36:
Patient seen and examined independently. Agree with findings and plan as set forth by MELONIE Arthur.
Patient is a 77y F with PMH significant for hypertension and DM-II with recent hospitalization for fall and R humerus fracture who presents to ED complaining of right hip pain with difficulty walking. Patient states that she had R hip pain
during recent admission; however, it has progressed since discharge. She now has worsening pain and is no longer able to ambulate. SNF rehab was discussed last admission; however, patient ultimately went home with home PT.
Ass:
Right Hip Pain
Ambulatory Dysfunction
Recent R Humerus Fracture
Benign Hypertension
1st Degree AV Block
ASCVD / PAD
Gastroparesis
Plan:
Observe overnight for further evaluation and treatment.
Check CT pelvis to rule out occult hip fracture. X-rays unremarkable.
PT / OT evaluations.
Continue usual outpatient med regimen.
May benefit from SNF stay at discharge as previously discussed.
Original Note:
Family Physician
-
Family Physician: Marlon Hunter
Chief Complaint
-
right hip pain radiating to mid low back pain
History of Present Illness
77 year old with PMH fot HTN, HLD, GERD,DM, PVD, migraines presented to us with right hip pain radiating to mid low back pain. progressively getting worse since the discharge. she was not able to move, stand due to pain from last night. she was
admitted here with acute right proximal humerus fracture. taking hydrocodone with no relief in her symptoms. denied GOTTLIEB, dizzy or syncopal episode. denied fever, chills, chest pain, sob. denied abdominal pain,n,v,d. denied dysuria or hematuria.
patient was supposed to go to rehab last admission, but got declined as [facility] was out of network.. she was getting PT at home, but her orthopedics recommended no physical therapy to right arm for atleast one week.
x ray with no acute findings. admitting for further management.
Medical History
Past Medical History
Past Medical History: Reports Other
Additional Past Medical History:
1st degree AV block
GOTTLIEB
HD
gastroparesis
edema
Aortic valve stenosis
PAD
HTN
Past Surgical History: Reports Other
Additional Past Surgical History:
cardiac stent
cholecystectomy
Social History
Tobacco: Former Smoker
Alcohol: None
Personal: Single
Living: Alone
Family History
Family History: Not pertinent
Allergies / Home Medications
Allergies reflects when Allergies were last updated in [employer].
Home Medications with original date entered in [employer]
Allergy/Medication List:
Allergies
Allergy/AdvReac Type Severity Reaction Status Date / Time
cephalexin [From Keflex] Allergy Hives Verified 09/11/23 16:20
Influenza Virus Vaccines Allergy Unknown Verified 09/11/23 16:20
NSAIDS (Non-Steroidal Allergy Migraines Verified 09/11/23 16:20
Anti-Inflamma
[Nsaids]
Srxtjbc-OPH-HvH Reductase Allergy acute Verified 09/11/23 16:20
Inhibitor inflammation
[Vmjfsrs-Fwg-Qlp Reductase of liver
Inhibitor]
Sulfa (Sulfonamide Allergy Hives Verified 09/11/23 16:20
Antibiotics)
tramadol AdvReac Severe Unknown Verified 09/11/23 16:20
Home Medications
amlodipine 10 mg tablet 10 mg PO DAILY Blood pressure 11/20/09
losartan 25 mg tablet 25 mg PO BID Blood pressure 11/18/21
ondansetron 4 mg disintegrating tablet 4 mg PO Q6HPRN PRN nausea and vomiting 01/07/22
lorazepam 0.5 mg tablet 0.5 mg PO BIDPRN PRN Anxiety 02/22/23
acetaminophen 500 mg tablet (Tylenol Extra Strength) 500 mg PO Q6HPRN PRN mild pain 08/29/23
magnesium hydroxide 400 mg/5 mL oral suspension (Milk of Magnesia) 30 ml PO DAILYPRN PRN constipation 08/29/23
potassium 95 mg tablet 95 mg PO DAILY Supplement 08/29/23
pantoprazole 40 mg tablet,delayed release (Protonix) 20 mg (1/2 x 40 mg) PO BID Gastrointestinal Issue #0 tabs 09/01/23
aspirin 81 mg chewable tablet 81 mg PO DAILY 09/11/23
hydrocodone 5 mg-acetaminophen 325 mg tablet 1 tab PO BID 09/11/23
Review of Systems
-
Constitutional: Reports No Symptoms
EENT: Reports No Symptoms
Respiratory: Reports No Symptoms
Cardiac: Reports No Symptoms
Abdomen/GI: Reports No Symptoms
: Reports No Symptoms
Musculoskeletal: Reports Other (right hip pain radiating to mid back)
Skin: Reports No Symptoms
Neurological: Reports No Symptoms
Endocrine: Reports No Symptoms
Hematologic/Lymphatic: Reports No Symptoms
Psych: Reports No Symptoms
Physical Exam
Vital Signs
Vital Signs
Temp Pulse Resp BP Pulse Ox
98.1 F 89 20 151/79 96
09/11/23 16:16 09/11/23 19:33 09/11/23 19:33 09/11/23 21:24 09/11/23 21:25
Physical Exam
General: Well Developed, Well Nourished and No Apparent Distress
HEENT: NormoCephalic, Moist mucous membranes and Atraumatic
Respiratory: Clear
Cardiac: S1/S2 and Regular Rhythm; No Murmur or Rub
GI: Soft, Non Tender, Non Distended and Normal Bowel Sounds; No Organomegaly
Rectal: Deferred by Provider
Musculoskeletal: No Clubbing, No Cyanosis and No Edema
Skin: No Rash
Neuro: AO x 3 and Nonfocal/grossly intact
Psych: Calm
Laboratory Results
-
09/11/23 20:18
09/11/23 20:18
Laboratory Results
Total Bilirubin 0.8 mg/dl (0.2-1.3) 09/11/23 20:18
AST 21 U/L (14-36) 09/11/23 20:18
ALT 13 U/L (0-35) 09/11/23 20:18
Alkaline Phosphatase 130 U/L (38-126) H 09/11/23 20:18
Data Reviewed
-
Diagnostic Radiology: Report Reviewed by me
Lab Data: Labs Reviewed by me
Impression/Plan
-
#ambulatory dysfunction due to lock back pain/reent right proximal humerus fracture
-PT/OT consult
-CM consulted for placement
-Hip X ray with No radiographic evidence for acute pelvic or proximal femoral fracture. 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 Severe left-sided facet joint arthrosis at L5/S1.
-hydrocodone continued
-Tylenol ATC
#anxiety
-lorazepam continued
#History of lung carcinoma status post upper lobe resection 02/04.
-Respiratory status stable.
#Essential hypertension. Continue amlodipine, losartan withhold parameter
#Gastroparesis.
-Regular diet.
-Continue PPI
Full code
DVT prophylaxis Lovenox
[2023-09-11 22:33] VITALS: BP 146/83
[2023-09-11 23:06] VITALS: BP 146/83
--- NOTE | 2023-09-11 23:15 | PTCARENOTE ---
Pt arrived to room 437-02. Pt ambulated from stretcher to bed. Pt AAOx3, VSS. Pt c/o 09/22 right arm, hip and lower back pain. Pt oriented to room, call ivan placed within reach.
[2023-09-11 23:29] VITALS: BP 163/80
[2023-09-11 23:30] VITALS: BMI 24.6
[2023-09-12] MEDS: MORPHINE SULFATE 2 MG IV (03:01)
[2023-09-12 07:00] VITALS: BP 125/59
[2023-09-12 07:24] LABS: Hematocrit 35.1 % (37.0-47.0); Hemoglobin 11.4 g/dL (12.0-16.0); Mean Corp Hgb Conc. 32.5 g/dL (33.0-37.0); Mean Corpuscular Hgb 23.7 pg (27.0-31.0); Mean Platelet Volume 10.3 fL (7.4-10.4); Platelet Count 317 10^3/uL (130-400); Red Blood Cell Count 4.81 10^6/uL (4.20-5.40); Red Cell Dist. Width 14.6 % (11.5-14.5); White Blood Cell Count 5.3 10^3/uL (4.8-10.8)
[2023-09-12 07:57] LABS: Blood Urea Nitrogen 9 mg/dl (7-17); Calcium 9.4 mg/dl (8.4-10.2); Carbon Dioxide 26 mmol/L (22-30); Chloride 103 mmol/L (98-107); Estimated Creatinine Clearance 63 ml/min; Glucose 94 mg/dl (70-99); Sodium 137 mmol/L (135-145); eGFR > 60.00
[2023-09-12] MEDS: LOW STRENGTH ASPIRIN 81 MG PO (09:10)
[2023-09-12] MEDS: NORVASC 10 MG PO (09:11)
[2023-09-12] MEDS: COZAAR 25 MG PO ×2 (09:11→21:24)
[2023-09-12] MEDS: PROTONIX 20 MG PO ×2 (09:16→21:24)
[2023-09-12] MEDS: NORCO 5/325 1 TABLET PO ×2 (09:16→21:24)
[2023-09-12 11:32] LABS: ALT (SGPT) 11 U/L (0-35); AST (SGOT) 17 U/L (14-36); Albumin 3.9 g/dl (3.5-5.0); Alkaline Phosphatase 103 U/L (38-126); Direct Bilirubin 0.2 mg/dl (0.0-0.4); Total Bilirubin 0.5 mg/dl (0.2-1.3); Total Protein 6.5 g/dl (6.3-8.2)
--- NOTE | 2023-09-12 13:12 | W.PN.HOSP.TC ---
Today's Communication/Plan
-
Monitor vital signs see plan
PT/OT
Pain control
heat application
Assessment / Plan
Assessment / Plan
General: Well Developed, Well Nourished and No Apparent Distress
HEENT: NormoCephalic, Moist mucous membranes and Atraumatic
Respiratory: Clear
Cardiac: S1/S2 and Regular Rhythm; No Murmur or Rub
GI: Soft, Non Tender, Non Distended and Normal Bowel Sounds
Musculoskeletal: No Edema
Skin: No Rash
Neuro: AO x 3 and Nonfocal/grossly intact
Psych: Calm
ambulatory dysfunction due to lock back pain/recent right proximal humerus fracture
-PT/OT consult
-CM consulted for placement
-Hip X ray with No radiographic evidence for acute pelvic or proximal femoral fracture. 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 Severe left-sided facet joint arthrosis at L5/S1.
-hydrocodone continued
-Tylenol ATC
CT pelvis without any hip fx
heat application
Suspect some pain is secondary to arthritis
#anxiety
-lorazepam continued
#History of lung carcinoma status post upper lobe resection 02/04.
-Respiratory status stable.
#Essential hypertension. Continue amlodipine, losartan withhold parameter
Left common iliac artery stent
#Gastroparesis.
-Regular diet.
-Continue PPI
Full code
DVT prophylaxis Lovenox
Anticipated Discharge: Within 24 hours
Subjective/Interval History
-
Date of Service: September 12, 2023
has pain
Objective Data
-
Labs:
Laboratory Results
09/12/23 09/12/23
06:25 10:02
WBC 5.3
Hgb 11.4 L
Hct 35.1 L
Plt Count 317
Sodium 137
Potassium 4.0
Chloride 103
Carbon Dioxide 26
BUN 9
Creatinine 0.5 L
Glucose 94
Calcium 9.4
Total Bilirubin 0.5 Cancelled
AST 17 Cancelled
ALT 11 Cancelled
Alkaline Phosphatase 103 Cancelled
Vital Signs:
Vital Signs
Temp Pulse Resp BP Pulse Ox
98.3 F 60 12 125/59 96
09/12/23 07:00 09/12/23 07:00 09/12/23 07:00 09/12/23 07:00 09/12/23 07:00
I&O
09/11/23 09/12/23 09/13/23
06:59 06:59 06:59
Intake Total 480 / 480
Balance 480 / 480
[2023-09-12 13:46] VITALS: BP 140/76; PULSE 87; O2SAT 98
[2023-09-12] MEDS: TYLENOL 1000 MG PO (14:02)
[2023-09-12] MEDS: TYLENOL PO ×2 (14:02→22:44)
[2023-09-12] MEDS: ATIVAN 0.5 MG PO (14:02)
[2023-09-12 14:08] VITALS: BMI 24.4
[2023-09-12 15:00] VITALS: BP 104/56
[2023-09-12] MEDS: LOVENOX 40 MG SC (16:41)
--- NOTE | 2023-09-12 16:44 | CM ---
test manager reviewed patient's chart and met with patient and patient lives with alone in an apartment, with 14 steps to enter, patient is independent with adl's and uses a cane with ambulation, jhon was recently discharged from [facility] with [facility] visiting nurses and now patient wants to go to a skilled facility, patient was seen by physical therapy and they recommend skilled placement. Patient has selected [facility].
PCP: Dr. Hunter
Pharmacy [facility]
Plan; Skilled placement at [facility].
[2023-09-12 23:00] VITALS: BP 118/64
--- NOTE | 2023-09-13 04:00 | PTCARENOTE ---
Attempted to place heating pad for pt. Equipment faulty- unable to use as it was leaking consistently while properly hooked up. Ice pack used instead- pt states with some relief.
[2023-09-13 06:00] VITALS: BMI 24.2
[2023-09-13 07:00] VITALS: BP 123/64
[2023-09-13] MEDS: TYLENOL PO (09:15)
[2023-09-13] MEDS: PROTONIX 20 MG PO ×2 (09:18→21:34)
[2023-09-13] MEDS: LOW STRENGTH ASPIRIN 81 MG PO (09:18)
[2023-09-13] MEDS: NORVASC 10 MG PO (09:18)
[2023-09-13] MEDS: COZAAR 25 MG PO ×2 (09:18→21:33)
[2023-09-13] MEDS: NORCO 5/325 1 TABLET PO ×2 (09:20→21:34)
--- NOTE | 2023-09-13 09:37 | CM ---
Addendum entered by Mayda Gerard 09/13/23 16:16:
[facility]
Report [phone]

Addendum entered by Mayda Gerard 09/13/23 16:07:
Auth received from [facility], for [facility], fax [phone] Ref # [id number], plan Auth ID [id number], 09/13/23 to 09/15/23, case technician Theresa Verduzco.
Original Note:
Chart reviewed and patient is agreeable to [facility] referral sent to [facility] and patient has been accepted and there is a bed available today, case technician to proceed with Auth.
Plan; Skilled placement at [facility] today pending Auth.
[2023-09-13 10:37] LABS: % Basophils 1.2 % (0-2); % Eosinophils 2.4 % (0-6); % Immature Granulocytes 0.5 % (0-0.5); % Lymphocytes 32.3 % (20.5-51.1); % Monocytes 6.4 % (1.7-9.3); % Neutrophils 57.2 % (42.2-75.2); Absolute Basophils 0.1 10^3/uL (0-0.2); Absolute Eosinophils 0.1 10^3/uL (0-0.7); Absolute Lymphocytes 1.4 10^3/uL (1.2-3.4); Absolute Monocytes 0.3 10^3/uL (0.1-0.6); Absolute Neutrophils 2.4 10^3/uL (1.4-6.5); Hematocrit 33.9 % (37.0-47.0); Hemoglobin 11.2 g/dL (12.0-16.0); Mean Corpuscular Hgb 23.5 pg (27.0-31.0); Mean Corpuscular Volume 71.1 fL (81.0-99.0); Mean Platelet Volume 11.6 fL (7.4-10.4); Nucleated Red Blood Cells % 0 %; Platelet Count 205 10^3/uL (130-400); Red Blood Cell Count 4.77 10^6/uL (4.20-5.40); Red Cell Dist. Width 14.7 % (11.5-14.5); White Blood Cell Count 4.2 10^3/uL (4.8-10.8)
[2023-09-13 11:33] LABS: ALT (SGPT) 11 U/L (0-35); AST (SGOT) 18 U/L (14-36); Albumin 4.3 g/dl (3.5-5.0); Alkaline Phosphatase 114 U/L (38-126); Blood Urea Nitrogen 10 mg/dl (7-17); Calcium 9.8 mg/dl (8.4-10.2); Carbon Dioxide 29 mmol/L (22-30); Chloride 102 mmol/L (98-107); Estimated Creatinine Clearance 63 ml/min; Glucose 103 mg/dl (70-99); Sodium 138 mmol/L (135-145); Total Bilirubin 0.8 mg/dl (0.2-1.3); Total Protein 7.1 g/dl (6.3-8.2); eGFR > 60.00
[2023-09-13] MEDS: MILK OF MAGNESIA 30 ML PO (12:01)
--- NOTE | 2023-09-13 12:57 | W.PN.UPDATE ---
Update Note
Progress Note Update
Patient presently admitted he was being seen on outpatient basis for her minimally impacted proximal humerus fracture with date of injury 29 August 2023. Patient was recommended for weekly x-rays to monitor for interval displacement. Notified by
primary x-rays were performed today as requested from her last outpatient visit.
X-rays were reviewed which show a minimally impacted proximal humerus fracture across the surgical neck without significant interval displacement from previous x-rays. She will continue with nonoperative care with x-rays in 1 week again and
consideration of beginning formal physical therapy to begin working passive range of motion of the right shoulder. She may otherwise do as detailed below
1. Wear the sling for 4-6 weeks from the date of injury. Weekly x-rays for the first 3 weeks to monitor for interval displacement for reconsideration of operative versus nonoperative management.
2. Perform active range of motion of the elbow, wrist, and hand to avoid stiffness. Do not perform shoulder range of motion initially until authorized.
3. You may perform ``pendulum�� exercises of the shoulder when pain allows
4. You may begin PASSIVE range of motion with the help of a physical therapist at about 3 to 4 weeks out from the date of injury pending x-ray evaluation; this is best tolerated laying down (supine)
5. You will follow-up at 6 weeks from date of injury and obtain new x-rays; if there is sufficient radiographic healing of the fracture, you will be allowed to begin ACTIVE-ASSISTED range of motion (AAROM).
6. NO STRENGTHENING exercises of the rotator cuff until after final x-rays at 3 months from date of injury. You may perform loco-scapular strengthening at 6 weeks as tolerated with PT.
--- NOTE | 2023-09-13 13:09 | W.PN.HOSP.TC ---
Today's Communication/Plan
-
Monitor vital signs
see plan
Pain control
Discharge planning
laxatives
Assessment / Plan
Assessment / Plan
General: Well Developed, Well Nourished and No Apparent Distress
HEENT: NormoCephalic, Moist mucous membranes and Atraumatic
Respiratory: Clear
Cardiac: S1/S2 and Regular Rhythm; No Murmur or Rub
GI: Soft, Non Tender, Non Distended and Normal Bowel Sounds
Musculoskeletal: No Edema
Skin: No Rash
Neuro: AO x 3 and Nonfocal/grossly intact
Psych: Calm
ambulatory dysfunction due to lock back pain/recent right proximal humerus fracture
-PT/OT consult rec SNF
-CM consulted for placement
-Hip X ray with No radiographic evidence for acute pelvic or proximal femoral fracture. 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 Severe left-sided facet joint arthrosis at L5/S1.
-hydrocodone continued
-Tylenol ATC
CT pelvis without any hip fx
heat application
Suspect some pain is secondary to arthritis
Repeat shoulder x-ray 09/12 with subacute right humeral neck fracture. Stable. Discussed with orthopedics and they want patient to follow-up with them outpatient
#anxiety
-lorazepam continued
Constipation
Laxatives
#History of lung carcinoma status post upper lobe resection 02/04.
-Respiratory status stable.
#Essential hypertension. Continue amlodipine, losartan withhold parameter
Left common iliac artery stent
#Gastroparesis.
-Regular diet.
-Continue PPI
Full code
DVT prophylaxis Lovenox
Anticipated Discharge: Within 24 hours
Subjective/Interval History
-
Date of Service: September 13, 2023
Still has pain
Objective Data
-
Labs:
Laboratory Results
09/13/23 09/13/23
09:34 11:01
WBC 4.2 L
Hgb 11.2 L
Hct 33.9 L
Plt Count 205 D
Sodium Cancelled 138
Potassium Cancelled 4.0
Chloride Cancelled 102
Carbon Dioxide Cancelled 29
BUN Cancelled 10
Creatinine Cancelled 0.6
Glucose Cancelled 103 H
Calcium Cancelled 9.8
Total Bilirubin Cancelled 0.8
AST Cancelled 18
ALT Cancelled 11
Alkaline Phosphatase Cancelled 114
Vital Signs:
Vital Signs
Temp Pulse Resp BP Pulse Ox
98.0 F 72 12 123/64 97
09/13/23 07:00 09/13/23 07:00 09/13/23 07:00 09/13/23 07:00 09/13/23 07:00
I&O
09/12/23 09/13/23 09/14/23
06:59 06:59 06:59
Intake Total 480 / 480 1919
Balance 480 / 480 1919
[2023-09-13] MEDS: ATIVAN 0.5 MG PO (13:47)
[2023-09-13] MEDS: ZOFRAN ODT (ORALLY DISINTEGRATING) 4 MG PO (13:47)
[2023-09-13 15:40] VITALS: BP 122/68
[2023-09-13] MEDS: TYLENOL 1000 MG PO (17:19)
[2023-09-13] MEDS: LOVENOX 40 MG SC (17:20)
[2023-09-13] MEDS: SENOKOT-S 1 TABLET PO (17:22)
[2023-09-13 23:47] VITALS: BP 111/63
[2023-09-14] MEDS: TYLENOL PO (01:32)
[2023-09-14] MEDS: ROXICODONE 5 MG PO (03:44)
[2023-09-14] MEDS: MILK OF MAGNESIA 30 ML PO (03:44)
[2023-09-14 06:00] VITALS: BMI 24.4
[2023-09-14 07:25] VITALS: BP 124/63
[2023-09-14 08:53] LABS: % Basophils 0.7 % (0-2); % Eosinophils 1.8 % (0-6); % Immature Granulocytes 0.4 % (0-0.5); % Lymphocytes 27.8 % (20.5-51.1); % Monocytes 5.2 % (1.7-9.3); % Neutrophils 64.1 % (42.2-75.2); Absolute Eosinophils 0.1 10^3/uL (0-0.7); Absolute Lymphocytes 1.6 10^3/uL (1.2-3.4); Absolute Monocytes 0.3 10^3/uL (0.1-0.6); Absolute Neutrophils 3.6 10^3/uL (1.4-6.5); Hemoglobin 12.1 g/dL (12.0-16.0); Mean Corp Hgb Conc. 32.7 g/dL (33.0-37.0); Mean Corpuscular Hgb 23.3 pg (27.0-31.0); Mean Corpuscular Volume 71.3 fL (81.0-99.0); Nucleated Red Blood Cells % 0 %; Platelet Count 316 10^3/uL (130-400); Red Blood Cell Count 5.19 10^6/uL (4.20-5.40); Red Cell Dist. Width 14.9 % (11.5-14.5); White Blood Cell Count 5.6 10^3/uL (4.8-10.8)
[2023-09-14 08:59] LABS: ALT (SGPT) 12 U/L (0-35); AST (SGOT) 20 U/L (14-36); Albumin 4.2 g/dl (3.5-5.0); Alkaline Phosphatase 127 U/L (38-126); Blood Urea Nitrogen 10 mg/dl (7-17); Calcium 9.5 mg/dl (8.4-10.2); Carbon Dioxide 29 mmol/L (22-30); Chloride 102 mmol/L (98-107); Estimated Creatinine Clearance 63 ml/min; Glucose 96 mg/dl (70-99); Sodium 137 mmol/L (135-145); Total Bilirubin 0.7 mg/dl (0.2-1.3); eGFR > 60.00
[2023-09-14] MEDS: LOW STRENGTH ASPIRIN 81 MG PO (09:16)
[2023-09-14] MEDS: PROTONIX 20 MG PO (09:16)
[2023-09-14] MEDS: TYLENOL 650 MG PO (09:17)
[2023-09-14] MEDS: NORVASC 10 MG PO (09:17)
[2023-09-14] MEDS: COZAAR 25 MG PO (09:17)
[2023-09-14] MEDS: NORCO 5/325 1 TABLET PO (09:20)
[2023-09-14] MEDS: DULCOLAX 10 MG RECTAL (09:31)
--- NOTE | 2023-09-14 09:49 | CM ---
Addendum entered by Patrizia Melendez 09/14/23 11:55:
Ambulance pick up driver scheduled fro 1500 today
[facility] liaison notified
Original Note:
Plan: Discharge to [facility] today via ambulance
Report # [phone]
--- NOTE | 2023-09-14 11:29 | W.PN.HOSP.TC ---
Today's Communication/Plan
-
monitor vitals
see plan
dc to SNF today
laxatives
pain control
Time of discharge 37 minutes
Assessment / Plan
Assessment / Plan
General: Well Developed, Well Nourished and No Apparent Distress
HEENT: NormoCephalic, Moist mucous membranes and Atraumatic
Respiratory: Clear
Cardiac: S1/S2 and Regular Rhythm; No Murmur or Rub
GI: Soft, Non Tender, Non Distended and Normal Bowel Sounds
Musculoskeletal: No Edema
Skin: No Rash
Neuro: AO x 3 and Nonfocal/grossly intact
Psych: Calm
ambulatory dysfunction due to lock back pain/recent right proximal humerus fracture
-PT/OT consult rec SNF
-CM consulted for placement
-Hip X ray with No radiographic evidence for acute pelvic or proximal femoral fracture. 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 Severe left-sided facet joint arthrosis at L5/S1.
-hydrocodone continued
-Tylenol ATC
CT pelvis without any hip fx
heat application
Suspect some pain is secondary to arthritis
Repeat shoulder x-ray 09/12 with subacute right humeral neck fracture. Stable. Discussed with orthopedics and they want patient to follow-up with them outpatient
#anxiety
-lorazepam continued
Constipation
Laxatives
now had BM
#History of lung carcinoma status post upper lobe resection 02/04.
-Respiratory status stable.
#Essential hypertension. Continue amlodipine, losartan withhold parameter
Left common iliac artery stent
#Gastroparesis.
-Regular diet.
-Continue PPI
Full code
DVT prophylaxis Lovenox
Anticipated Discharge: Today
Subjective/Interval History
-
Date of Service: September 14, 2023
denies nausea
Objective Data
-
Labs:
Laboratory Results
09/14/23
08:20
WBC 5.6
Hgb 12.1
Hct 37.0
Plt Count 316 D
Sodium 137
Potassium 4.0
Chloride 102
Carbon Dioxide 29
BUN 10
Creatinine 0.6
Glucose 96
Calcium 9.5
Total Bilirubin 0.7
AST 20
ALT 12
Alkaline Phosphatase 127 H
Vital Signs:
Vital Signs
Temp Pulse Resp BP Pulse Ox
98.3 F 76 16 124/63 98
09/14/23 07:25 09/14/23 09:17 09/14/23 07:25 09/14/23 09:17 09/14/23 07:25
I&O
09/13/23 09/14/23 09/15/23
06:59 06:59 06:59
Intake Total 1919 480 / 480 660 / 660
Balance 1919 480 / 480 660 / 660
--- NOTE | 2023-09-14 11:34 | W.DCSUMMARY ---
Discharge Summary
Discharge Data
Date of Admission: 09/11/23
Date of Discharge: 09/14/23
-
Pending Results: No
Hospital Course
77-year-old female with past medical history of recent proximal humerus fracture, anxiety, constipation, history of lung carcinoma status post resection, essential hypertension, left common iliac artery stent, gastroparesis came to the hospital with
ambulatory dysfunction due to arthritis and recent humerus fracture. Patient was seen by physical therapy who recommended SNF. She also had some hip pain so hip x-ray was done which did not show any signs of acute fracture however it did show
osteoarthritis. CT scan of the pelvis was also done which did not show any signs signs of hip fracture. Patient symptoms over time continue to improve with heat application and pain control. Her shoulder x-ray was also done which showed subacute
right humeral neck fracture which was stable from previous x-ray. Once her SNF was established, she was then discharged to SNF with instructions to follow-up with all her physicians outpatient.
Discharge Plan
-
Patient Disposition: Custodial/SNF
Discharge Diagnosis/Procedures: Ambulatory dysfunction
Recent right proximal humerus fracture, stable
Arthritis
Diet: As tolerated
Activity: With assistance and As tolerated
Driving Restrictions: Not until seen by your Dr
Bathing Restrictions: None
Referrals:
Collin Parnell PA-C [Specified Professional Personl] - in one week
Marlon Hunter MD [Family Provider] - in less than 1 week
Prescriptions:
New
acetaminophen 325 mg Tablet
650 mg PO TID Qty: 0 0RF
sennosides-docusate sodium [Stool Softener-Laxative] 8.6-50 mg Tablet
1 tab PO BIDPRN PRN (Reason: constipation) Qty: 0 0RF
oxycodone 5 mg Tablet
5 mg PO Q8HPRN PRN (Reason: severe pain) Qty: 10 0RF
Continued
amlodipine 10 MG tablet
10 mg PO DAILY
losartan 25 mg tablet
25 mg PO BID
ondansetron 4 mg tablet,disintegrating
4 mg PO Q6HPRN PRN (Reason: nausea and vomiting)
potassium 95 mg Tablet
95 mg PO DAILY
magnesium hydroxide [Milk of Magnesia] 400 mg/5 mL Suspension
30 ml PO DAILYPRN PRN (Reason: constipation)
pantoprazole [Protonix] 40 mg tablet,delayed release (DR/EC)
20 mg PO BID Qty: 0 0RF
aspirin 81 mg Tablet,Chewable
81 mg PO DAILY
lorazepam 0.5 mg tablet
0.5 mg PO BIDPRN PRN (Reason: Anxiety) Qty: 6 0RF
Changed
hydrocodone-acetaminophen 5-325 mg tablet
1 tab PO BID Qty: 6 0RF
Discontinued
acetaminophen [Tylenol Extra Strength] 500 mg Tablet
500 mg PO Q6HPRN PRN (Reason: mild pain)
Discharge Orders:
Discharge Patient (As Directed); Ordered 09/14/23
Ordered By: Boom Tobar
Discharge Date and Time
Discharge Date/Time: 09/14/23 16:12
Print Language: BAHAMIAN
[2023-09-14] MEDS: ATIVAN 0.5 MG PO (14:38)
[2023-09-14 14:45] VITALS: BP 141/88
== END 2023-09-14 16:12 ==
LOC: 4 WEST ACU 22:37
PROVIDERS: Physician Assistant; Registered Nurse; ADMITTING PHYSICIAN Hospitalist; ATTENDING PHYSICIAN Internal Medicine; EMERGENCY PHYSICIAN Emergency Medicine; FAMILY PHYSICIAN Family Medicine
DX: S42.201A Unspecified fracture of upper end of right humerus, initial encounter for closed fracture (principal); M25.551 Pain in right hip; M47.817 Spondylosis without myelopathy or radiculopathy, lumbosacral region; M79.601 Pain in right arm; I10 Essential (primary) hypertension; K50.90 Crohn's disease, unspecified, without complications; E11.51 Type 2 diabetes mellitus with diabetic peripheral angiopathy without gangrene; E78.00 Pure hypercholesterolemia, unspecified; E11.43 Type 2 diabetes mellitus with diabetic autonomic (poly)neuropathy; K31.84 Gastroparesis; I25.10 Atherosclerotic heart disease of native coronary artery without angina pectoris; I35.0 Nonrheumatic aortic (valve) stenosis; M16.0 Bilateral primary osteoarthritis of hip; R26.2 Difficulty in walking, not elsewhere classified; F41.9 Anxiety disorder, unspecified; K59.00 Constipation, unspecified; W19.XXXA Unspecified fall, initial encounter; Y93.9 Activity, unspecified; Y92.009 Unspecified place in unspecified non-institutional (private) residence as the place of occurrence of the external cause; D56.9 Thalassemia, unspecified; M19.011 Primary osteoarthritis, right shoulder; M81.0 Age-related osteoporosis without current pathological fracture; M51.36 Other intervertebral disc degeneration, lumbar region; K21.9 Gastro-esophageal reflux disease without esophagitis; Z87.891 Personal history of nicotine dependence; Z90.49 Acquired absence of other specified parts of digestive tract; Z79.82 Long term (current) use of aspirin; Z95.5 Presence of coronary angioplasty implant and graft; Z88.6 Allergy status to analgesic agent; Z88.1 Allergy status to other antibiotic agents; Z88.5 Allergy status to narcotic agent; Z88.2 Allergy status to sulfonamides; Z88.7 Allergy status to serum and vaccine; Z85.118 Personal history of other malignant neoplasm of bronchus and lung
CPT/HCPCS: 72192; 73030; 73502; 80053; 82248; 85025; 85027; 96374; 97163; 97166; 99285; G0378

== ENCOUNTER → 2023-10-22 06:57 | Outpatient (REF) | payer OTHER, SELFPAY | LOC: MRI 06:57 | PROVIDERS: ATTENDING PHYSICIAN Physician Assistant Surgical; FAMILY PHYSICIAN Family Medicine | DX: M54.16 Radiculopathy, lumbar region (principal) | CPT/HCPCS: 72148 ==

== ENCOUNTER 2023-12-15 13:16 | Emergency (ER) | payer OTHER, SELFPAY ==
[2023-12-15 13:24] VITALS: BP 154/86
--- NOTE | 2023-12-15 14:56 | ED.GENMED ---
History of Present Illness
General
Chief Complaint: Chest Problem
Time Seen by Provider: 12/15/23 14:55
History of Present Illness
History of Present Illness:
TIME OF INITIAL ENCOUNTER: 2:56 PM
HPI: The patient presents due to chest and abdominal discomfort. The chest pain is been ongoing for the last few days. She has recurrence of abdominal right-sided abdominal pain. She states she has had blocked bile duct treated with stents in the
past. She recently broke her back and has been on oxycodone. She had this recently refilled. She says she has been having some constipation due to this but also has been taking MiraLAX. She has had Botox in the past related to gastroparesis.
EXAM:
GENERAL: Well appearing but in mild distress
HEENT: Moist oral mucosa
CARDIOVASCULAR: No murmurs, normal heart rate, regular rhythm, No chest wall tenderness
PULMONARY: No respiratory distress, breath sounds are clear and equal
ABDOMEN: Soft with no peritoneal signs, vague right-sided abdominal tenderness
NEUROLOGIC: Excellent strength all extremities, no coordination deficits
PSYCHIATRIC: Appropriate mental status, normal insight and judgement
EXTREMITIES: Nontender, no edema, moves all extremities equally
SKIN: No rash, no lesions
NUMBER AND COMPLEXITY OF PROBLEMS ADDRESSED AT THE ENCOUNTER
� Chronic conditions affecting care: History of lung cancer status postresection, had a recent proximal humerus fracture, high blood pressure, hyperlipidemia, gastroparesis, diverticular disease
� Acute Exacerbation and/or Progression of Chronic Illness: This is a subacute problem
� Differential Diagnosis includes:
AMOUNT AND/OR COMPLEXITY OF DATA TO BE REVIEWED AND ANALYZED
� I performed an independent evaluation of and my interpretation is:
EKG: Sinus 73, inferior Q waves which are old, no acute ST abnormality
CT: CT shows progression of compression of vertebral bodies, there is only mild dilatation of the bile ducts likely related to postcholecystectomy state
X-rays:
Laboratory Studies: White count normal, hemoglobin normal, urinalysis negative troponin less than 0.012
Other:
� Review of other/old records: Patient has had multiple visits to the ED in 2021 and 2022 regarding abdominal pain. I reviewed Dr. Pedro's note from 2021 which indicates that the patient has had CBD stones in the past, was
felt to have gastroparesis did not respond to Botox as she had in the past, supportive care was given.
� Clinical information was obtained by an independent historian: None needed
� Prescriptions/Medications Considered but not given:
� Further testing considered but not performed:
RISK OF COMPLICATIONS AND/OR MORBIDITY OR MORTALITY OF PATIENT MANAGEMENT
� Social determinants of health affecting care: Lives at home
� Discussion with other providers:
� Escalation of care including admission/observation vs risk of discharge considered: The patient has had multiple visits in the past related to abdominal pain. She also is concerned about chest pain however she has a relatively
unremarkable EKG with troponin despite a few days of symptoms.
ANY OTHER UPDATES:
6:45 PM: I reassessed patient after she was given Dilaudid earlier, LFTs are normal, white count is normal. The patient has chronic abdominal pain. No clear indication for admission to the hospital. She does have analgesia at home. I encouraged
her to continue to take something to help event constipation as well.
Past History
Past History
ED Past Medical History: Cancer, GERD, HTN, Hypercholesterolemia, NIDDM and Other (Peripheral vascular disease, migraines, Crohn's, thalassemia)
ED Past Surgical History: Cholecystectomy and Other
Patient has exhibited threatening behavior?: No
PSI?: No
Social History
Tobacco: Former smoker
Alcohol: None
Drug: None
Personal:
Living: alone
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
Family History
Family History: Other (Noncontributory)
Phy Exam
Physical Exam
Physical Exam:
See HPI
Course
Orders/Labs/Results
Orders:
Orders
12/15/23 13:23
EKG [Electrocardiogram (*1)] Urgent
Reason for Study: Chest Pain
EKG- Treatment ONCE
12/15/23 14:15
Urinalysis Reflex To Culture Urgent
Date Specimen was Collected: 12/15/23
Time Specimen was Collected: 14:10
12/15/23 14:57
Electrocardiogram (*1) Urgent
Reason for Study: Chest Pain
EKG- Treatment ONCE
12/15/23 15:18
Complete Blood Count/With Diff Urgent
Comprehensive Metabolic Panel Urgent
Lipase Urgent
Troponin I Urgent
12/15/23 15:23
HYDROmorphone [Dilaudid] 0.5 mg IV NOW STA
Ondansetron Injectable [Zofran] 4 mg IV NOW STA
12/15/23 15:30
CT Abd/pelvis W Iv Cont Urgent
Comment:
Reason For Exam: R pain
Abnormal Lab Results
12/15/23
15:18
MCV 72.9 L fL
(81.0-99.0)
MCH 24.0 L pg
(27.0-31.0)
RDW 14.6 H %
(11.5-14.5)
12/15/23 15:18
12/15/23 15:18
Vital Signs
Initial and Last Documented VS:
Initial Vital Signs
Temp Pulse Resp BP Pulse Ox
98 F 81 16 154/86 98
12/15/23 13:24 12/15/23 13:24 12/15/23 13:24 12/15/23 13:24 12/15/23 13:24
Last Documented Vital Signs
Temp Pulse Resp BP Pulse Ox
98 F 61 17 160/86 98
12/15/23 13:24 12/15/23 18:45 12/15/23 18:45 12/15/23 18:00 12/15/23 18:45
*Critical Care Note
Total Time (30-74mins, 75-104mins- exclusive of procedures): Not Applicable
ED Attending Note
-
Portions of this chart may have been created with voice recognition software.� Occasional wrong word or��sound alike� substitutions may have occurred due to the inherent limitations of voice recognition software.
Discharge Plan
Departure
Prescriptions:
No Action
amlodipine 10 MG tablet
10 mg PO DAILY
losartan 25 mg tablet
25 mg PO BID
ondansetron 4 mg tablet,disintegrating
4 mg PO Q6HPRN PRN (Reason: nausea and vomiting)
potassium 95 mg Tablet
95 mg PO DAILY
magnesium hydroxide [Milk of Magnesia] 400 mg/5 mL Suspension
30 ml PO DAILYPRN PRN (Reason: constipation)
pantoprazole [Protonix] 40 mg tablet,delayed release (DR/EC)
20 mg PO BID Qty: 0 0RF
aspirin 81 mg Tablet,Chewable
81 mg PO DAILY
acetaminophen 325 mg Tablet
650 mg PO TID Qty: 0 0RF
sennosides-docusate sodium [Stool Softener-Laxative] 8.6-50 mg Tablet
1 tab PO BIDPRN PRN (Reason: constipation) Qty: 0 0RF
oxycodone 5 mg Tablet
5 mg PO Q8HPRN PRN (Reason: severe pain) Qty: 10 0RF
hydrocodone-acetaminophen 5-325 mg tablet
1 tab PO BID Qty: 6 0RF
lorazepam 0.5 mg tablet
0.5 mg PO BIDPRN PRN (Reason: Anxiety) Qty: 6 0RF
Referrals:
Marlon Hunter MD [Family Provider] -
Interventions
Interventions:
*Risk Screen - Suicide Last Done: 12/15/23 13:24
*General Assessment Last Done: 12/15/23 13:24
*Neglect/Abuse Screening Last Done: 12/15/23 13:24
ED- Fall Risk Assessment Last Done: 12/15/23 15:09
*ED COVID-19 Vaccine History Last Done: 12/15/23 15:14
EE-Ngnnzw-Ihcroyfrlb Assessment Last Done: 12/15/23 15:09
ED- Cardiac Assessment Last Done: 12/15/23 15:09
ED- Pulmonary Assessment Last Done: 12/15/23 15:09
Discharge Date and Time
Print Language: TANZANIAN
[2023-12-15 15:05] LABS: Urine Albumin Negative (Neg - Trace); Urine Bilirubin Negative (Negative); Urine Character Clear (Clear); Urine Color Yellow; Urine Glucose Negative (Negative); Urine Ketone Negative (Negative); Urine Leukocyte Negative (Negative); Urine Nitrite Negative (Negative); Urine Occult Blood Negative (Negative); Urine Urobilinogen Negative (Neg - 1+)
[2023-12-15 15:08] VITALS: BMI 23.8
[2023-12-15 15:11] VITALS: BP 156/80
[2023-12-15 15:28] LABS: % Basophils 0.5 % (0-2); % Eosinophils 0.7 % (0-6); % Immature Granulocytes 0.2 % (0-0.5); % Lymphocytes 42.8 % (20.5-51.1); % Monocytes 5.8 % (1.7-9.3); Absolute Lymphocytes 2.4 10^3/uL (1.2-3.4); Absolute Monocytes 0.3 10^3/uL (0.1-0.6); Absolute Neutrophils 2.8 10^3/uL (1.4-6.5); Hematocrit 37.3 % (37.0-47.0); Hemoglobin 12.3 g/dL (12.0-16.0); Mean Corpuscular Volume 72.9 fL (81.0-99.0); Nucleated Red Blood Cells % 0 %; Platelet Count 273 10^3/uL (130-400); Red Blood Cell Count 5.12 10^6/uL (4.20-5.40); Red Cell Dist. Width 14.6 % (11.5-14.5); White Blood Cell Count 5.7 10^3/uL (4.8-10.8)
[2023-12-15] MEDS: DILAUDID 0.5 MG IV (15:35)
[2023-12-15] MEDS: ZOFRAN 4 MG IV (15:36)
[2023-12-15 15:41] LABS: ALT (SGPT) 12 U/L (0-35); AST (SGOT) 16 U/L (14-36); Albumin 3.8 g/dl (3.5-5.0); Alkaline Phosphatase 126 U/L (38-126); Blood Urea Nitrogen 9 mg/dl (7-17); Calcium 9.5 mg/dl (8.4-10.2); Carbon Dioxide 26 mmol/L (22-30); Chloride 105 mmol/L (98-107); Estimated Creatinine Clearance 62 ml/min; Glucose 88 mg/dl (70-99); Lipase 37 U/L (23-300); Potassium 3.5 mmol/L (3.5-5.1); Sodium 139 mmol/L (135-145); Total Bilirubin 0.4 mg/dl (0.2-1.3); Total Protein 6.4 g/dl (6.3-8.2); eGFR > 60.00
[2023-12-15 15:52] LABS: Troponin I < 0.012 ng/ml
[2023-12-15 16:00] VITALS: BP 142/63
[2023-12-15 17:00] VITALS: BP 149/66
[2023-12-15 18:00] VITALS: BP 160/86
== END 2023-12-15 19:45 | disposition home or self-care (01) ==
LOC: EMR 13:16
PROVIDERS: Emergency Medicine; EMERGENCY PHYSICIAN Emergency Medicine; FAMILY PHYSICIAN Family Medicine
DX: R10.9 Unspecified abdominal pain (principal); G89.29 Other chronic pain; R07.89 Other chest pain; E78.00 Pure hypercholesterolemia, unspecified; I10 Essential (primary) hypertension; K50.90 Crohn's disease, unspecified, without complications; Z87.891 Personal history of nicotine dependence; Z90.49 Acquired absence of other specified parts of digestive tract
CPT/HCPCS: 96374; 96375; 99284; 74177; 80053; 81003; 83690; 84484; 85025; 93005; Q9967

== ENCOUNTER 2024-02-29 11:12 | Inpatient (IN) | payer OTHER, SELFPAY ==
[2024-02-29] VITALS (20 sets, daily range): BP systolic 103–157; BP diastolic 59–89; BMI 26.2
[2024-02-29 06:47] LABS: % Eosinophils 0.6 % (0-6); % Immature Granulocytes 0.2 % (0-0.5); % Lymphocytes 35.6 % (20.5-51.1); % Monocytes 6.3 % (1.7-9.3); % Neutrophils 56.3 % (42.2-75.2); Absolute Basophils 0.1 10^3/uL (0-0.2); Absolute Lymphocytes 1.8 10^3/uL (1.2-3.4); Absolute Monocytes 0.3 10^3/uL (0.1-0.6); Absolute Neutrophils 2.9 10^3/uL (1.4-6.5); Hematocrit 38.5 % (37.0-47.0); Hemoglobin 12.4 g/dL (12.0-16.0); Mean Corp Hgb Conc. 32.2 g/dL (33.0-37.0); Mean Corpuscular Hgb 23.9 pg (27.0-31.0); Mean Corpuscular Volume 74.3 fL (81.0-99.0); Mean Platelet Volume 9.8 fL (7.4-10.4); Nucleated Red Blood Cells % 0 %; Platelet Count 288 10^3/uL (130-400); Red Blood Cell Count 5.18 10^6/uL (4.20-5.40); Red Cell Dist. Width 14.3 % (11.5-14.5); White Blood Cell Count 5.1 10^3/uL (4.8-10.8)
[2024-02-29] MEDS: NITRO-BID TOPICAL (07:03)
[2024-02-29 07:05] LABS: ALT (SGPT) 13 U/L (0-35); AST (SGOT) 20 U/L (14-36); Albumin 4.3 g/dl (3.5-5.0); Alkaline Phosphatase 101 U/L (38-126); Blood Urea Nitrogen 10 mg/dl (7-17); Calcium 9.5 mg/dl (8.4-10.2); Carbon Dioxide 25 mmol/L (22-30); Chloride 104 mmol/L (98-107); Estimated Creatinine Clearance 62 ml/min; Glucose 99 mg/dl (70-99); Potassium 3.9 mmol/L (3.5-5.1); Sodium 140 mmol/L (135-145); Total Bilirubin 0.6 mg/dl (0.2-1.3); Total Protein 7.2 g/dl (6.3-8.2); eGFR > 60.00
--- NOTE | 2024-02-29 07:07 | ED.GENMED ---
History of Present Illness
General
Chief Complaint: Chest Pain
Source: patient and records
Exam Limitations: none
Time Seen by Provider: 02/29/24 06:41
Nursing documentation reviewed up to this point in time: agreed with
History of Present Illness
History of Present Illness:
78-year-old female with past medical history of hypertension, hyperlipidemia, chronic disease, lung cancer status post partial lobectomy, gastroparesis who presents to the emergency department for evaluation of chest pain. Patient reports symptoms
started yesterday�she says she was having symptoms mainly when she moves around that seem to go away with rest. Last night had an episode while she was resting in bed reading a book. This morning had another episode while at rest associated with
significant shortness of breath which prompted her to call EMS to come to the hospital. She says she has some mild nausea no vomiting. No diaphoresis. She has not had any recent illness�no cough, fevers, chills. She deals with chronic abdominal
pains and headaches and various other issues but these issues are all stable. She sees Dr. Coyle for cardiology.
Past History
Past History
ED Past Medical History: Cancer, GERD, HTN, Hypercholesterolemia, NIDDM and Other (Peripheral vascular disease, migraines, Crohn's, thalassemia)
ED Past Surgical History: Cholecystectomy and Other
Patient has exhibited threatening behavior?: No
PSI?: No
Social History
Tobacco: Former smoker
Alcohol: None
Drug: None
Personal:
Living: alone
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
Family History
Family History: Other (Noncontributory)
Review of Systems
Review of Systems
All Other Systems: ROS reviewed and negative except as documented in HPI and ROS
Constitutional: Denies fever
Respiratory: Reports trouble breathing
Cardiac: Reports chest pain; Denies diaphoresis, palpitations or syncope
ABD/GI: Reports nausea; Denies abdominal pain or vomiting
: Denies flank pain
Musculoskeletal: Denies neck pain or back pain
Neurological: Denies dizzy or headache
Phy Exam
Physical Exam
Physical Exam:
General: Awake, alert, oriented x3; no acute distress
Head: Normocephalic, atraumatic
Eyes: Conjunctiva normal, sclera anicteric
Throat: Airway intact, handling secretions
Neck: Trachea midline, supple without meningismus
Lungs: Clear to auscultation bilaterally, no wheezing, rales, rhonchi
Heart: Regular rate and rhythm, systolic murmur
Abd: Soft, non distended, nontender
Neuro: No gross deficits
Skin: no rash
Extremities: No edema in extremities, equal pulses in all extremities
Scores
Heart Failure Risk
Heart Failure Risk Score: Not Applicable
Heart Score for Chest Pain Patients
STEMI patient?: No
History: Highly Suspicious
ECG: Nonspecific Repolarization (New T wave abnormalities)
Age: >/= 65 years
Risk Factors: >/= 3 Risk Factors or History of CAD
Troponin: </= Normal Limit
Heart Score for Chest Pain Patients: 7
Heart Score Risk: 72.7 % MACE over next 6 weeks
Withdrawal Assessment of Alcohol
Withdrawal Assessment Completed?: Not applicable
Course
Orders/Labs/Results
Orders:
Orders
02/29/24
Electrocardiogram (*1) Stat
Reason for Study: Chest Pain
Comment: DONE
02/29/24 Breakfast
NPO
Allow oral meds: Yes
Allow clear liquids: No
02/29/24 06:30
Electrocardiogram (*1) Urgent
Reason for Study: Chest Pain
Cardiac Monitoring- Treatment ONCE
EKG- Treatment ONCE
02/29/24 06:40
Complete Blood Count/With Diff Urgent
Comprehensive Metabolic Panel Urgent
Troponin I Urgent
02/29/24 06:47
Nitroglycerin Ointment [Nitro-Bid] 1 inch TOPICAL NOW STA
02/29/24 06:51
PTT Urgent
02/29/24 07:06
Aspirin Chewable [Low Strength Aspirin] 324 mg PO NOW STA
02/29/24 07:07
CR Chest Portable - 1 View Urgent
Comment:
Reason For Exam: chest pain
Reason Study Needs to be Portable: Unable to Transport
02/29/24 08:54
Heparin 3,900 units IV NOW STA
Pharmacy Request to Place See Dose Instructions PO NOW STA
Discontinue all Active Warfarin orders?: Yes
Heparin Protocol- PTT Orders As Directed
PTT per Heparin protocol: -Obtain CBC and baseline PTT - if not already collected.
-Obtain PTT 6 hours from start of infusion. Then, every 6 hours until 2 consecutive
PTT's are therapeutic. Then, PTT Daily.
-With each rate change, obtain PTT every 6 hours until 2 consecutive PTT's are
therapeutic. Then, PTT Daily.
Notify MD As Directed
Notify physician if: PTT is greater than or equal to 200.
02/29/24 09:00
Heparin 80881 Units/250 ml 25,000 units in 250 ml IV PER PROTOCOL
Weight to be used for heparin protocol in kilograms (kg):: 65
Protocol:: Cardiac Tx/Acute Coronary
PTT Goal Range to be used:: PTT 73 to 111 seconds
Order type:: Initial
INITIAL Infusion Dose (UNITS/KG/hr) & then follow protocol:: 12 units/kg/hr
Infusion Dose in UNITS/hr & then follow protocol (UNITS/hr):: 800
INFUSION RATE in mL/hr & then follow protocol (mL/hr):: 8
PTT less than or equal to 64 seconds:: Increase rate by 200 units/hr (+ 2 mL/hr)
PTT 64.1 to 72.9 seconds:: Increase rate by 100 units/hr (+ 1 mL/hr)
PTT 73 to 111 seconds:: Target Range. No change in rate.
PTT 111.1 to 130.9 seconds:: Decrease rate by 100 units/hr (- 1 mL/hr)
PTT 131 to 199.9 seconds:: HOLD for 1 hr. Then decrease rate by 200 units/hr (- 2 mL/hr)
PTT greater than or equal to 200 seconds:: HOLD for 2 hrs & Notify Provider. Then decrease by 200 units/hr (-
2 mL/hr)
Lab follow-up:: Each change, PTT q6h until 2 consecutive are therapeutic. Then PTT
daily.
02/29/24 09:14
Echo 2D MMode Color/Doppler Routine
Reason for Study: chest pain/USA, abnormal EKG, hx
Comment: for cath today as well
02/29/24 09:40
Troponin I Urgent
02/29/24 13:00
EKG [Electrocardiogram (*1)] Routine
Reason for Study: Abnormal EKG
Troponin I Q6H
02/29/24 19:00
EKG [Electrocardiogram (*1)] Routine
Reason for Study: Abnormal EKG
Troponin I Q6H
03/01/24 06:00
Hgba1c [Glycohemoglobin (HgbA1c)] IN AM
Lipid Profile [Cardiovascular Evaluation] IN AM
03/02/24 06:00
Complete Blood Count/No Diff Q2D
Comment: Notify MD if platelet count is <130,000 or decreases by 50% from baseline
03/04/24 06:00
Complete Blood Count/No Diff Q2D
Comment: Notify MD if platelet count is <130,000 or decreases by 50% from baseline
03/06/24 06:00
Complete Blood Count/No Diff Q2D
Comment: Notify MD if platelet count is <130,000 or decreases by 50% from baseline
03/08/24 06:00
Complete Blood Count/No Diff Q2D
Comment: Notify MD if platelet count is <130,000 or decreases by 50% from baseline
03/10/24 06:00
Complete Blood Count/No Diff Q2D
Comment: Notify MD if platelet count is <130,000 or decreases by 50% from baseline
03/12/24 06:00
Complete Blood Count/No Diff Q2D
Comment: Notify MD if platelet count is <130,000 or decreases by 50% from baseline
03/14/24 06:00
Complete Blood Count/No Diff Q2D
Comment: Notify MD if platelet count is <130,000 or decreases by 50% from baseline
03/16/24 06:00
Complete Blood Count/No Diff Q2D
Comment: Notify MD if platelet count is <130,000 or decreases by 50% from baseline
Abnormal Lab Results
02/29/24
06:40
MCV 74.3 L fL
(81.0-99.0)
MCH 23.9 L pg
(27.0-31.0)
MCHC 32.2 L g/dL
(33.0-37.0)
Creatinine 0.5 L mg/dL
(0.6-1.0)
02/29/24 06:40
02/29/24 06:40
Vital Signs
Initial and Last Documented VS:
Initial Vital Signs
Temp Pulse Resp BP Pulse Ox
36.9 C 85 13 133/81 99
02/29/24 06:31 02/29/24 06:31 02/29/24 06:31 02/29/24 06:31 02/29/24 06:31
Last Documented Vital Signs
Temp Pulse Resp BP Pulse Ox
36.9 C 81 17 121/72 99
02/29/24 06:31 02/29/24 09:00 02/29/24 09:00 02/29/24 09:00 02/29/24 09:00
MDM/Problems Addressed
Differential Diagnosis Includes:
ACS/unstable angina, gastroparesis/GERD, costochondritis, pneumothorax; pneumonia, PE considered less likely clinically
MDM/Problems Addressed:
78-year-old female who presents to the ER for evaluation of chest pain that she says symptoms seem to be worse with exertion although she has had 2 resting episodes since last night this morning intense associated with shortness of breath. Vitals
and exam as above. EKG shows new anterior lateral T wave inversions compared to old. Follow-up 10 minutes later no significant changes. Plan to place an IV send labs including a CBC and a CMP, coags, troponins. Check chest x-ray. Case discussed
with cardiology for consultation. Monitor on telemetry reassess after the above. She is currently chest pain-free. Will treat with aspirin.
Labs reviewed: CBC and CMP unremarkable. Initial troponin negative. Chest x-ray shows no acute disease on my review. Cardiology evaluated the bedside plan for admission and likely cath. Start heparin. Case discussed with hospitalist.
Chronic conditions affecting care:
Hypertension, hyperlipidemia, diabetes
*Radiology
Radiology exam reviewed: preliminary read by ED provider and radiology read reviewed
*Pulse Oximetry
Patient hypoxic: no
*EKG
Interpreted by ED Provider?: Yes
Comparison EKG: changes noted (New anterolateral T wave changes)
Heart Rate: 81
Rate: normal
Rhythm: sinus
[place]: normal axis
Interval: normal interval
QRS Pattern: normal QRS
Ischemia: T-wave inversion
*Critical Care Note
Total Time (30-74mins, 75-104mins- exclusive of procedures): Not Applicable
Data Reviewed
Review of Other/Old Records Reveals: Labs, Records and Testing (Stress test reviewed from 2022)
Source: patient, records and ambulance crew
Patient Management
Discussion with other providers: Hospitalist (Discussed with hospitalist) and [employer] Concentration Operator (Discussed with cardiology)
Escalation/DeEscalation of care consider admission/obs:
Admission indicated
ED Attending Note
-
Portions of this chart may have been created with voice recognition software.� Occasional wrong word or��sound alike� substitutions may have occurred due to the inherent limitations of voice recognition software.
Discharge Plan
Departure
Patient Disposition: Admit
Date of Disposition: 02/29/24
Time of Disposition: 09:21
Admit to doctor: Chi
Presentation/result/management discussed w/ accepting MD/DO: Hospitalist
Discharge Problem:
Unstable angina
Prescriptions:
No Action
amlodipine 10 MG tablet
10 mg PO DAILY
losartan 25 mg tablet
25 mg PO BID
ondansetron 4 mg tablet,disintegrating
4 mg PO Q6HPRN PRN (Reason: nausea and vomiting)
pantoprazole [Protonix] 40 mg tablet,delayed release (DR/EC)
20 mg PO BID Qty: 0 0RF
aspirin 81 mg Tablet,Chewable
81 mg PO DAILY
lorazepam 0.5 mg tablet
0.5 mg PO BID
oxycodone 5 mg tablet
5 mg PO BID
mineral oil Oil
15 ml PO DAILYPRN PRN (Reason: constiaption)
Metamucil Packet
1 packet PO DAILY
docusate sodium [Colace] 100 mg Capsule
100 mg PO BID
Referrals:
Marlon Hunter MD [Family Provider] -
Interventions
Interventions:
*Risk Screen - Suicide Last Done: 02/29/24 06:31
*General Assessment Last Done: 02/29/24 06:31
*Neglect/Abuse Screening Last Done: 02/29/24 06:31
*ED COVID-19 Vaccine History Last Done: 02/29/24 07:16
ED- Cardiac Assessment Last Done: 02/29/24 07:04
Discharge Date and Time
Print Language: FAROESE
[2024-02-29 07:13] LABS: APTT 28.5 Sec (23.4-35.0)
[2024-02-29 07:16] LABS: Troponin I 0.019 ng/ml
[2024-02-29] MEDS: NITRO-BID 1 INCH TOPICAL (07:23)
--- NOTE | 2024-02-29 08:56 | CON.CAR ---
Addendum entered and electronically signed by Ton Coyle MD 02/29/24 09:33:
78 yo female with PAD, HTN, former tobacco, statin intolerance, mild/moderate , chronic pain, prior lung cancer is admitted with waxing/waning chest pain. She has chronic pain at baseline, and now pain in chest and shoulder is waking her from
sleep. Exam wih RRR, III/ systolic murmur at RUSB, no edema. TnI 0.019. EKG with new deep anterolateral TWI.
Concern for ACS/unstable angina. Echo and cath today.
[id number] and heparin drip. Nitro paste.
Original Note:
Consultation
Consultation Request
Date/Time Consultation Requested: 02/29/24803
Date/Time Consultation Performed: 02/29/24809
Requesting Provider: Dr. Anderson
Performing Provider: Marilu WILHELM for Dr. Coyle
Reason for Consultation: chest discomfort
Medical History
-
Chief Complaint: chest discomfort
History of Present Illness:
78 y/o female with hypertension, dyslipidemia, mild-moderate , 1st degree AVB, IVCD, mild to moderate , PAD s/p left common iliac stent 2016, former tobacco (quit 2017), statin intolerance, thalassemia, chronic fatigue, chronic pain, lung cancer
s/p lobectomy who is here for evaluation of chest discomfort. It is a midsternal chest pressure and has been present on and off for about 2.5 months. She went to the ER in December and w/u was unremarkable- she was given pain meds and went home. It
has been on and off and oxycodone helped as OP, but over the past few days has been constant and worse with exertion. Last night, she also had SOB and nausea. In the ER, nitropaste placed. She still has mild chest discomfort, but is in no distress
at the time of my assessment. Of note, she has also been reporting RLQ pain, as well as GOTTLIEB (prior to nitro). Trop 0.019, but EKG with deep T wave inversions anterolaterally.
Past Medical History
Past Medical History: Cancer, HTN, Hypercholesterolemia, Valvular Disease and Other (PAD, as above)
Social History
Tobacco: Former Smoker
Family History
Family History: Reviewed & Not Pertinent
Allergies / Home Medications
Allergy/AdvReac Type Severity Reaction Status Date / Time
cephalexin [From Keflex] Allergy Hives Verified 09/11/23 16:20
Influenza Virus Vaccines Allergy Unknown Verified 09/11/23 16:20
NSAIDS (Non-Steroidal Allergy Migraines Verified 09/11/23 16:20
Anti-Inflamma
[Nsaids]
Pnnoyyv-IXH-CnV Reductase Allergy acute Verified 09/11/23 16:20
Inhibitor inflammation
[Fymggfc-Zhi-Fmj Reductase of liver
Inhibitor]
Sulfa (Sulfonamide Allergy Hives Verified 09/11/23 16:20
Antibiotics)
tramadol AdvReac Severe Unknown Verified 09/11/23 16:20
�Medication �Instructions �Recorded �Confirmed �Type
amlodipine 10 mg tablet 10 mg PO DAILY Blood pressure 11/20/09 09/11/23 History
losartan 25 mg tablet 25 mg PO BID Blood pressure 11/18/21 09/11/23 History
ondansetron 4 mg disintegrating 4 mg PO Q6HPRN PRN nausea and 01/07/22 09/11/23 History
tablet vomiting
magnesium hydroxide 400 mg/5 mL 30 ml PO DAILYPRN PRN constipation 08/29/23 09/11/23 History
oral suspension (Milk of Magnesia)
potassium 95 mg tablet 95 mg PO DAILY Supplement 08/29/23 09/11/23 History
pantoprazole 40 mg tablet,delayed 20 mg (1/2 x 40 mg) PO BID 09/01/23 09/11/23 Rx
release (Protonix) Gastrointestinal Issue #0 tabs
aspirin 81 mg chewable tablet 81 mg PO DAILY Blood Clot 09/11/23 09/11/23 History
Prevention/Tx
acetaminophen 325 mg tablet 650 mg (2 x 325 mg) PO TID #0 tabs 09/14/23 Rx
hydrocodone 5 mg-acetaminophen 325 1 tab PO BID Pain #6 tabs 09/14/23 Rx
mg tablet
lorazepam 0.5 mg tablet 0.5 mg PO BIDPRN PRN Anxiety #6 09/14/23 Rx
tabs
oxycodone 5 mg tablet 5 mg PO Q8HPRN PRN severe pain #10 09/14/23 Rx
tabs
sennosides 8.6 mg-docusate sodium 1 tab PO BIDPRN PRN constipation 09/14/23 Rx
50 mg tablet (Stool #0 tabs
Softener-Laxative)
Review of Systems
-
History Source: Patient
All other systems: Negative unless noted
Respiratory: Trouble Breathing
Cardiac: Chest Pain
Abdomen/GI: Abdominal Pain and Nausea
Musculoskeletal: Other (chronic pain)
Neurological: Headache
Physical Exam
Vital Signs
Temp Pulse Resp BP Pulse Ox
98.4 F 80 16 114/67 96
02/29/24 06:31 02/29/24 08:00 02/29/24 08:03 02/29/24 08:00 02/29/24 08:00
Lab Results
02/29/24 06:40
02/29/24 06:40
Troponin I 0.019 ng/ml 02/29/24 06:40
Physical Exam
General: Well Developed and No Apparent Distress
HEENT: Normocephalic and Anicteric
Respiratory: Clear and Non Labored Respirations
Cardiac: Regular Rhythm and Murmur (II/ systolic)
Musculoskeletal: No Edema
Skin: Warm and Dry
Neuro: AO x 3
Psych: Calm
Impression / Plan
-
Chest pain, some typical and atypical features:
-I am concerned for unstable angina with her chest discomfort, EKG abnormalities, and risk factors. This diagnosis is threat to life. Plan for cath and echo today. I will start heparin gtt, which requires intensive monitoring.
-continue with nitropaste
-full dose ASA ordered in ER- continue ASA
-trend trops and EKGs
Dyslipidemia:
-statin intolerant
-discuss PCSK9 inhibitors as OP
-check lipids
Aortic stenosis:
-update echo
RLQ pain:
-unclear source
-w/u per primary
HTN:
-continue meds and monitor
Hx lung cancer s/p surgery
Chronic pain, anxiety: on meds as OP
PAD with hx iliac stenting: ASA
Data Reviewed
-
EKG: Tracing Personally Visualized and interpreted
Radiology: Image Personally Visualized and interpreted (no acute disease to my review- awaiting radiology read)
Medical Tests (Nuc Med, Echo etc): Report Reviewed by me (Echo 12/20/22: Normal left ventricular size and systolic function. Mild concentric left ventricular hypertrophy. Mild to moderate aortic stenosis.)
Labs: Labs Reviewed by me
[2024-02-29] MEDS: HEPARIN 3900 UNITS IV (09:46)
[2024-02-29] MEDS: HEPARIN 25000 UNITS/250 ML IV (09:46)
[2024-02-29 10:10] LABS: Troponin I 0.022 ng/ml
--- NOTE | 2024-02-29 10:57 | HPS.HSE ---
Family Physician
-
Family Physician: Marlon Hunter
Chief Complaint
-
chest pain
History of Present Illness
Patient 78 years old female history of hypertension, hyperlipidemia, peripheral vascular disease, former smoker, chronic pain, lung cancer status post left upper lobectomy, came into the hospital with chest pain. Patient states she has been having
chest pain for several weeks and has been taking pain medications without significant relief, this time woke her from sleep, pain moderate to severe intensity worsened with exertion and associated with shortness of breath and nausea. Denies
palpitations diaphoresis syncope or near syncope. Patient came into the ER and started on nitro with some relief of her pain and cardiology consulted. She was referred to hospitalist service for further evaluation.
Medical History
Past Medical History
Past Medical History: Reports Other
Additional Past Medical History:
1st degree AV block
GOTTLIEB
HD
gastroparesis
edema
Aortic valve stenosis, mild to moderate
PAD with common iliac stent
HTN
Thalassemia
Chronic pain with opioid dependence
Lung cancer status post left upper lobectomy
Former tobacco use statin intolerant
Past Surgical History: Reports Other
Additional Past Surgical History:
cardiac stent
cholecystectomy
Social History
Tobacco: Former Smoker
Alcohol: None
Personal: Single
Living: Alone
Family History
Family History: Not pertinent
Allergies / Home Medications
Allergies reflects when Allergies were last updated in [facility].
Home Medications with original date entered in [facility]
Allergy/Medication List:
Allergies
Allergy/AdvReac Type Severity Reaction Status Date / Time
cephalexin [From Keflex] Allergy Hives Verified 09/11/23 16:20
Influenza Virus Vaccines Allergy Unknown Verified 09/11/23 16:20
NSAIDS (Non-Steroidal Allergy Migraines Verified 09/11/23 16:20
Anti-Inflamma
[Nsaids]
Jlynmth-VMC-YcE Reductase Allergy acute Verified 09/11/23 16:20
Inhibitor inflammation
[Kbecyfs-Reb-Oyi Reductase of liver
Inhibitor]
Sulfa (Sulfonamide Allergy Hives Verified 09/11/23 16:20
Antibiotics)
tramadol AdvReac Severe Unknown Verified 09/11/23 16:20
Home Medications
amlodipine 10 mg tablet 10 mg PO DAILY Blood pressure 11/20/09
losartan 25 mg tablet 25 mg PO BID Blood pressure 11/18/21
ondansetron 4 mg disintegrating tablet 4 mg PO Q6HPRN PRN nausea and vomiting 01/07/22
pantoprazole 40 mg tablet,delayed release (Protonix) 20 mg (1/2 x 40 mg) PO BID Gastrointestinal Issue #0 tabs 09/01/23
aspirin 81 mg chewable tablet 81 mg PO DAILY Blood Clot Prevention/Tx 09/11/23
docusate sodium 100 mg capsule (Colace) 100 mg PO BID 02/29/24
lorazepam 0.5 mg tablet 0.5 mg PO BID 02/29/24
mineral oil 15 ml PO DAILYPRN PRN constiaption 02/29/24
oxycodone 5 mg tablet 5 mg PO BID 02/29/24
psyllium 1 packet PO DAILY 02/29/24
Review of Systems
-
A 12 point ROS was completed and negative except as noted: Yes
Physical Exam
Vital Signs
Vital Signs
Temp Pulse Resp BP Pulse Ox
98.4 F 83 15 103/63 96
02/29/24 06:31 02/29/24 10:15 02/29/24 10:15 02/29/24 10:06 02/29/24 10:15
Physical exam:
General: Acutely ill
HEENT: Normocephalic, Atraumatic and Moist Mucous Membranes
Respiratory: Clear to Auscultation; Negative Wheezes, Rales or Rhonchi
Cardiac: Regular Rhythm and S1/S2
GI: Soft, Nontender and Nondistended
Musculoskeletal: No Clubbing, No Cyanosis and No Edema
Neuro: Awake, Alert and Oriented, no neurological deficits
Psych: Anxious
Physical Exam
General: Other
Laboratory Results
-
02/29/24 06:40
02/29/24 06:40
Laboratory Results
APTT 28.5 Sec (23.4-35.0) 02/29/24 06:51
Total Bilirubin 0.6 mg/dl (0.2-1.3) 02/29/24 06:40
AST 20 U/L (14-36) 02/29/24 06:40
ALT 13 U/L (0-35) 02/29/24 06:40
Alkaline Phosphatase 101 U/L (38-126) 02/29/24 06:40
Troponin I 0.022 ng/ml 02/29/24 09:37
Data Reviewed
-
Diagnostic Radiology: Image Personally Visualized and interpreted
Lab Data: Labs Reviewed by me
Impression/Plan
-
IMPRESSION:
Patient 78 years old female with multiple comorbidities and cardiac risk factors for CAD came into the hospital with recurrent chest pain. Concerns for unstable angina and patient at risk of increased morbidity mortality due to her current acute
presentation and comorbidities therefore she will need to be admitted to the hospital and monitor accordingly.
PLAN:
Unstable angina:
Cardiac enzymes normal but uptrending so continue to monitor
Start heparin drip
Continue aspirin
Continue Nitropaste
Cardiac monitoring
Plan for echocardiogram
Plan for cardiac cath
Cardiology consulted-appreciated input
Hyperlipidemia:
Statin intolerant
Check lipid
Probably a good candidate for PCSK9 inhibitors
Aortic stenosis:
Avoid hypotension
Update echocardiogram
Abdominal discomfort:
Plan for ultrasound of the right upper quadrant
Hypertension:
Continue home antihypertensives from tomorrow on and will use as needed today
Lung cancer:
Status post lobectomy and will need follow-up surveillance as outpatient
Peripheral vascular disease:
Continue aspirin and known statin intolerance
Chronic pain syndrome with chronic opioid dependence:
Continue her oral pain medicines
Add IV narcotics as needed
DVT prophylaxis:
On heparin drip
CODE STATUS:
Full code
Time spent 75 minutes
[2024-02-29] MEDS: MORPHINE SULFATE 2 MG IV ×2 (11:09→21:15)
[2024-02-29] MEDS: ATIVAN 1 MG IV (11:55)
[2024-02-29] MEDS: NSS (PRESERVATIVE FREE) 0.5 ML IV (11:56)
[2024-02-29] MEDS: TYLENOL 650 MG PO (16:38)
[2024-02-29 16:53] LABS: Glucose - Point of Care 96 mg/dl (70-99)
--- NOTE | 2024-02-29 17:00 | PTCARENOTE ---
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 Patient unable to state her pain level. Tylenol given for headache. Patient had difficulty talking with daughter. Daughter stated this is not normal for her. Rapid response and
stroke code called. VSS. Please refer to rapid response sheet. PROGRAM EVALUATION CONSULTANT and MD at bedside. Neurology at bedside.
--- NOTE | 2024-02-29 17:39 | CON.NEURO ---
Consultation
Order
Date of Consultation: 02/29/24
Requesting Provider:
Reason for Consult: Stroke alert
Called in 16:52
Neurology Consultation Note.
HPI: This is a 78-year-old woman who presented to [facility] on 02/29/2024 with chest pain.
Stroke alert was initiated after patient complained about blurred vision and headache following cardiac catheterization.
The patient reportedly initially experienced a mild headache and visual symptoms including flashing lights, which she reported are characteristic of her prior migraines. She received 650mg of Tylenol for headache management upon arrival. She
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
No recent vital signs
PDMP:Oxycodone Hcl (Ir) 5 Mg�60 tablets filled in on 02/01/2024, 01/04/2024, Lorazepam 0.5 Mg 60 tablets filled in on 01/13/2024, 12/17/2023.
Labs-pending
CT head wo contrast�no acute abnormalities.
CTA head/neck-pending
MAR: Heparin bolus 3900 units given at 09:46 AM, Hepp gtt started at 9:46 AM, Lorazepam 1 mg given on 02/29/24 at 11:55 am, Morphine 2 mg given on 02/29/24 at 11:09
PMH: Thalassemia, chronic pain including headache/ opioid dependence, lung cancer, Crohn's disease, PAD, HTN, DLP, gastroparesis,, ambulatory dysfunction, chronic T11, T12, L2 L4 compression
PSH: Left upper lobectomy, cholecystectomy, PTCI
SH: Lives alone, former smoker,
All: Limited due to poor attention
General: Well developed. In no acute distress.
Cardio: Regular rate . Extremities are without cyanosis or edema.
Neuro:
Mental Status: Alert, oriented to self. Poor attention and increased processing time. Follows simple requests. Difficulties with naming ('hand' instead of 'glove', intermittent perseverations). No hemineglect.
Cranial Nerves: Pupils are equally round, surgical. Extraocular movements intact. No visual field limitations. No facial weakness. Mild dysarthria
Motor: No pronator or leg drift.
Sensory: Limited exam due to poor attention
Coordination: No dysmetria.
Gait: deferred
Assessment and Plan:
I. Mild aphasia/dysarthria. Vascular vs toxic. Possible tkn candidate pending CTA and PT/PTT.
II. Chronic headache
III. Chronic opioid use
-Please check vital signs,
-CBC, metabolic panel, magnesium, PT, PTT
-Will follow CTA head and neck report
-Aspirin 81 mg once a day
-DVT prophylaxis.
I personally reviewed all radiology and labs along with past medical records pertinent to current medical problems. Total time spent in patient care is 60 minutes.
Thank you for allowing us to participate in the care of this patient. We will continue to follow. Please do not hesitate to contact us with any questions or concerns.
Subjective/Objective
Subjective Data
Date of Service: February 29, 2024
Objective Data
Vital Signs
Temp Pulse Resp BP Pulse Ox
36.9 C 92 14 104/63 97
02/29/24 06:31 02/29/24 15:15 02/29/24 15:15 02/29/24 14:00 02/29/24 14:45
Lab Results
02/29/24 06:40
02/29/24 06:40
APTT 28.5 Sec (23.4-35.0) 02/29/24 06:51
Sodium 140 mmol/L (135-145) 02/29/24 06:40
Potassium 3.9 mmol/L (3.5-5.1) 02/29/24 06:40
BUN 10 mg/dl (7-17) 02/29/24 06:40
Glucose 99 mg/dl (70-99) 02/29/24 06:40
Calcium 9.5 mg/dl (8.4-10.2) 02/29/24 06:40
Patient Allergies
cephalexin [From Keflex] Allergy (Verified 09/11/23 16:20)
Hives
Influenza Virus Vaccines Allergy (Verified 09/11/23 16:20)
Unknown
NSAIDS (Non-Steroidal Anti-Inflamma [Nsaids] Allergy (Verified 09/11/23 16:20)
Migraines
Caysvwe-LMV-JpO Reductase Inhibitor [Brzfbns-Bpl-Cvu Reductase Inhibitor] Allergy (Verified 09/11/23 16:20)
acute inflammation of liver
Sulfa (Sulfonamide Antibiotics) Allergy (Verified 09/11/23 16:20)
Hives
tramadol Adverse Reaction (Severe, Verified 09/11/23 16:20)
Unknown
Medications
-
Active Medications
Generic Name Dose Route Start Last Admin
Trade Name Freq PRN Reason Stop Dose Admin
Acetaminophen 650 mg 02/29/24 15:59 02/29/24 16:38
Acetaminophen 325 Mg Tablet PO 03/28/24 15:58 650 mg
Q4HPRN PRN Administration
mild pain
Amlodipine Besylate 10 mg 03/01/24 08:00
Amlodipine 10 Mg Tablet PO 03/29/24 07:59
DAILY LUIS F
Aspirin 81 mg 03/01/24 08:00
Aspirin 81 Mg Chewable Tablet PO 03/29/24 07:59
DAILY LUIS F
Bisacodyl 10 mg 02/29/24 13:03
Bisacodyl 10 Mg Rectal Suppository RECTAL 03/28/24 13:02
[id number] PRN
constipation
Sodium Chloride 1,000 mls @ 0 mls/hr 02/29/24 16:00
Nss IV 03/01/24 15:59
PER PROTOCOL LUIS F
Protocol
Per Protocol
Lorazepam 0.5 mg 02/29/24 20:00
Lorazepam 0.5 Mg Tablet PO 03/28/24 19:59
BID LUIS F
Losartan Potassium 25 mg 03/01/24 08:00
Losartan 25 Mg Tablet PO 03/29/24 07:59
BID LUIS F
Morphine Sulfate 2 mg 02/29/24 10:56 02/29/24 11:09
Morphine 2 Mg/Ml Syringe IV 03/14/24 10:55 2 mg
Q4HPRN PRN Administration
severe pain
Oxycodone HCl 5 mg 02/29/24 20:00
Oxycodone 5 Mg Regular Release Tablet PO 03/14/24 19:59
BID LUIS F
Pantoprazole Sodium 20 mg 02/29/24 20:00
Pantoprazole 20 Mg Delayed Release Tablet PO 03/28/24 19:59
BID LUIS F
Polyethylene Glycol 17 grams 02/29/24 13:03
Polyethylene Glycol Powder 17 Grams Packet PO 03/28/24 13:02
DAILYPRN PRN
constipation
Senna/Docusate Sodium 1 tablet 02/29/24 13:03
Docusate W/Senna (Danae-Colace) Tablet PO 03/28/24 13:02
BIDPRN PRN
constipation
Sodium Chloride 0 flush 02/29/24 14:00
Sodium Chloride 0.9% (Flush) Syringe IV 03/28/24 13:59
PER PROTOCOL LUIS F
Home Medications
�Medication �Instructions �Recorded
amlodipine 10 mg tablet 10 mg PO DAILY Blood pressure 11/20/09
losartan 25 mg tablet 25 mg PO BID Blood pressure 11/18/21
ondansetron 4 mg disintegrating 4 mg PO Q6HPRN PRN nausea and 01/07/22
tablet vomiting
pantoprazole 40 mg tablet,delayed 20 mg (1/2 x 40 mg) PO BID 09/01/23
release (Protonix) Gastrointestinal Issue #0 tabs
aspirin 81 mg chewable tablet 81 mg PO DAILY Blood Clot 09/11/23
Prevention/Tx
docusate sodium 100 mg capsule 100 mg PO BID Constipation 02/29/24
(Colace)
lorazepam 0.5 mg tablet 0.5 mg PO BID Mental Health/Anxiety 02/29/24
mineral oil 15 ml PO DAILYPRN PRN constiaption 02/29/24
oxycodone 5 mg tablet 5 mg PO BID Pain 02/29/24
psyllium 1 packet PO DAILY 02/29/24
Vital Signs and Labs
-
Vital Signs and Labs:
Vital Signs
Temp Pulse Resp BP Pulse Ox
36.9 C 77 15 140/73 92
02/29/24 06:31 02/29/24 18:45 02/29/24 18:00 02/29/24 18:00 02/29/24 18:30
Lab Results
02/29/24 06:40
02/29/24 06:40
APTT Cancelled 02/29/24 15:45
Sodium 140 mmol/L (135-145) 02/29/24 06:40
Potassium 3.9 mmol/L (3.5-5.1) 02/29/24 06:40
BUN 10 mg/dl (7-17) 02/29/24 06:40
Glucose 99 mg/dl (70-99) 02/29/24 06:40
Calcium 9.5 mg/dl (8.4-10.2) 02/29/24 06:40
Medications
-
Medications:
Generic Name Dose Route Start Last Admin
Trade Name Freq PRN Reason Stop Dose Admin
Acetaminophen 650 mg 02/29/24 15:59 02/29/24 16:38
Acetaminophen 325 Mg Tablet PO 03/28/24 15:58 650 mg
Q4HPRN PRN Administration
mild pain
Amlodipine Besylate 10 mg 03/01/24 08:00
Amlodipine 10 Mg Tablet PO 03/29/24 07:59
DAILY LUIS F
Aspirin 81 mg 03/01/24 08:00
Aspirin 81 Mg Chewable Tablet PO 03/29/24 07:59
DAILY LUIS F
Bisacodyl 10 mg 02/29/24 13:03
Bisacodyl 10 Mg Rectal Suppository RECTAL 03/28/24 13:02
[id number] PRN
constipation
Sodium Chloride 1,000 mls @ 0 mls/hr 02/29/24 16:00
Nss IV 03/01/24 15:59
PER PROTOCOL LUIS F
Protocol
Per Protocol
Lorazepam 0.5 mg 02/29/24 20:00
Lorazepam 0.5 Mg Tablet PO 03/28/24 19:59
BID LUIS F
Losartan Potassium 25 mg 03/01/24 08:00
Losartan 25 Mg Tablet PO 03/29/24 07:59
BID LUIS F
Morphine Sulfate 2 mg 02/29/24 10:56 02/29/24 11:09
Morphine 2 Mg/Ml Syringe IV 03/14/24 10:55 2 mg
Q4HPRN PRN Administration
severe pain
Oxycodone HCl 5 mg 02/29/24 20:00
Oxycodone 5 Mg Regular Release Tablet PO 03/14/24 19:59
BID LUIS F
Pantoprazole Sodium 20 mg 02/29/24 20:00
Pantoprazole 20 Mg Delayed Release Tablet PO 03/28/24 19:59
BID LUIS F
Polyethylene Glycol 17 grams 02/29/24 13:03
Polyethylene Glycol Powder 17 Grams Packet PO 03/28/24 13:02
DAILYPRN PRN
constipation
Senna/Docusate Sodium 1 tablet 02/29/24 13:03
Docusate W/Senna (Danae-Colace) Tablet PO 03/28/24 13:02
BIDPRN PRN
constipation
Sodium Chloride 0 flush 02/29/24 14:00
Sodium Chloride 0.9% (Flush) Syringe IV 03/28/24 13:59
PER PROTOCOL LUIS F
Home Medications
-
Home Medications
amlodipine 10 mg tablet 10 mg PO DAILY Blood pressure 11/20/09
losartan 25 mg tablet 25 mg PO BID Blood pressure 11/18/21
ondansetron 4 mg disintegrating tablet 4 mg PO Q6HPRN PRN nausea and vomiting 01/07/22
pantoprazole 40 mg tablet,delayed release (Protonix) 20 mg (1/2 x 40 mg) PO BID Gastrointestinal Issue #0 tabs 09/01/23
aspirin 81 mg chewable tablet 81 mg PO DAILY Blood Clot Prevention/Tx 09/11/23
docusate sodium 100 mg capsule (Colace) 100 mg PO BID Constipation 02/29/24
lorazepam 0.5 mg tablet 0.5 mg PO BID Mental Health/Anxiety 02/29/24
mineral oil 15 ml PO DAILYPRN PRN constiaption 02/29/24
oxycodone 5 mg tablet 5 mg PO BID Pain 02/29/24
psyllium 1 packet PO DAILY 02/29/24
--- NOTE | 2024-02-29 18:27 | ITS.CL.PN ---
Sales Forecast Analyst - Procedure Note
Procedure
Procedure Note:
CARDIAC CATHETERIZATION REPORT
Date of Procedure: 02/29/2024
Referring: Dr. Trent Coyle MD, PhD
Indication: NSTEMI
PROCEDURE(S)
1. left heart catheterization
2. coronary angiography
ACCESS: 6F right radial artery (closure: radial band)
CATHETERS
1. 6F JR4
2. 6F JL3.5
MODERATE SEDATION: 35 minutes of moderate sedation was utilized. An independent medical coding technician was present to assist with and help manage the patient's level of consciousness and physiologic status.
ULTRASOUND GUIDED VASCULAR ACCESS (right radial artery): Ultrasound was utilized for vascular access. The vessel was visualized under ultrasound and noted to be patent. An image of the vessel was stored permanently in the patient's medical record.
Under direct ultrasound guidance, vascular access was obtained using a modified Seldinger technique and a 6 Icelandic sheath was placed.
HEMODYNAMIC DATA
LV 143/7 (EDP 20) mmHg
AO 137/58 (mean 90) mmHg
CORONARY ANGIOGRAPHY
Dominance: Right
LM: Large, normal
LAD: Large vessel giving rise to a large D1 and wrapping around the apex. There is mild nonobstructive disease.
LCx: Large vessel giving rise to a moderate caliber OM1/ramus, large branching OM2, and large OM3. There are mild luminal irregularities.
RCA: Moderate caliber vessel giving rise to a large RPDA and moderate caliber RPL branch. There is diffuse mild-moderate nonobstructive disease.
RADIATION: dose 191 mGy; DAP 12.8 Gy*cm2; fluoroscopy time 6.1 min
CONCLUSIONS
1. Nonobstructive coronary artery disease in a right dominant system.
2. Mildly elevated LV filling pressure and no aortic stenosis.
RECOMMENDATIONS
1. expectant management after cardiac catheterization via right radial approach
2. aggressive secondary prevention of coronary artery disease
3. workup and treatment for myocardial injury not related to epicardial coronary artery disease
Copy to: Trent Kaye MD, PhD (command post craftsman); David Garcia MD (PCP)
Signed: Al Chen MD, PhD
[2024-02-29 18:59] LABS: INR 1.02; PT 13.9 Sec (11.4-14.6)
[2024-02-29 19:06] LABS: Magnesium 1.9 mg/dl (1.6-2.3)
--- NOTE | 2024-02-29 19:30 | W.PN.UPDATE ---
Update Note
Progress Note Update
PT/PTT results were reviewed(posted at 18:38). Last time seen in [facility] based on cardiology report: 15:45 today. Spoke to patient's daughter regarding her mother's current neuro exam TNK therapeutic window, benefits and risks of treatment.
Ms. Quezada has declined treatment in view of patient's known history of 'ocular migraines' with visual field loss and treatment risks.
Plan: IV Toradol 30 mg, Reglan 10 mg, Benadryl 25 mg Q8h PRN for moderate to severe headache.
-Brain MRI without elvis
-ASA 81mg QD
-Will follow.
Dr. Olivera
[2024-02-29 19:36] LABS: Troponin I 0.051 ng/ml
[2024-02-29] MEDS: PROTONIX 20 MG PO (19:52)
[2024-02-29] MEDS: ROXICODONE 5 MG PO (19:52)
--- NOTE | 2024-02-29 20:16 | PTCARENOTE ---
NIH completed score 4. Pt asleep but easily arousable. Pt c/o severe headache, scheduled Marychuy given.
[2024-02-29] MEDS: ATIVAN 0.5 MG PO (20:29)
[2024-02-29] MEDS: ZOFRAN 4 MG IV (20:29)
[2024-02-29] MEDS: DILAUDID 0.25 MG IV (23:57)
[2024-03-01] VITALS (8 sets, daily range): BP systolic 93–116; BP diastolic 47–62; BMI 23.6
[2024-03-01 00:18] LABS: Troponin I 0.079 ng/ml
[2024-03-01 05:58] LABS: Hematocrit 36.4 % (37.0-47.0); Hemoglobin 11.8 g/dL (12.0-16.0); Mean Corp Hgb Conc. 32.4 g/dL (33.0-37.0); Mean Corpuscular Hgb 24.1 pg (27.0-31.0); Mean Corpuscular Volume 74.3 fL (81.0-99.0); Platelet Count 290 10^3/uL (130-400); Red Cell Dist. Width 14.3 % (11.5-14.5); White Blood Cell Count 5.7 10^3/uL (4.8-10.8)
[2024-03-01] MEDS: DILAUDID 0.25 MG IV ×2 (06:04→13:13)
[2024-03-01 06:32] LABS: Blood Urea Nitrogen 9 mg/dl (7-17); Calcium 9.1 mg/dl (8.4-10.2); Carbon Dioxide 25 mmol/L (22-30); Chloride 103 mmol/L (98-107); Estimated Creatinine Clearance 59 ml/min; Glucose 89 mg/dl (70-99); HDL Cholesterol 49 mg/dl; LDL Cholesterol, Calculated 148 mg/dl; Potassium 4.7 mmol/L (3.5-5.1); Sodium 139 mmol/L (135-145); Total Cholesterol 235 mg/dl (50-199); Triglyceride 190 mg/dl (10-149); Very Low Density Lipoprotein 38 mg/dl (0-30); eGFR > 60.00
[2024-03-01 06:40] LABS: Troponin I 0.069 ng/ml
[2024-03-01] MEDS: FLUSH (NSS) 1 FLUSH IV ×2 (08:14→13:14)
[2024-03-01] MEDS: ZOFRAN 4 MG IV (08:14)
[2024-03-01] MEDS: ATIVAN 0.5 MG PO ×2 (08:15→20:26)
[2024-03-01] MEDS: ROXICODONE 5 MG PO ×2 (08:15→20:26)
[2024-03-01] MEDS: PROTONIX 20 MG PO ×2 (08:15→20:26)
[2024-03-01] MEDS: COZAAR 25 MG PO ×2 (08:16→20:27)
[2024-03-01] MEDS: NORVASC 10 MG PO (08:16)
[2024-03-01] MEDS: LOW STRENGTH ASPIRIN 81 MG PO (08:17)
--- NOTE | 2024-03-01 08:28 | PTCARENOTE ---
received patient on walking rounds, NIH scale done together, patient is improving. patient c/o nausea and headache, Zofran IV given as ordered. pain medication already scheduled dose given. patient aware of name and birthday, the year is 1925. MRI
called for screening and patient able to answer questions appropriately. patient did state, 'I feel confused and I am worried'. offered emotional support. patietn able to take am medications with no problem. montior shows NSR, VSS. patient schedule
for abd. U/S and MRI this am, remains NPO.
--- NOTE | 2024-03-01 10:36 | W.PN.NEURO.1 ---
Today's Communication / Plan
-
.
Subjective/Objective
Subjective Data
Date of Service: March 01, 2024
Neurology follow-up note.
Ms. Webber endorses ongoing moderate dull headache with associated nausea. No reports of visual changes, motor or sensory deficits.
Review of vital signs was notable for transient hypotension down to 94/50 on 03/01/2024 at 03:52.
MAR: No lorazepam 0.5 mg given on 03/01/24 08:15 AM, morphine 2 mg given on 02/29/24 at 21:15, oxycodone 5 mg given on 03/01/24 at 08:15
CT head wo contrast�no acute abnormalities.
CTA head/neck-no evidence of significant stenosis, dissection or aneurysm.
Labs: LDL�148, Mg-1.9.
PMH: Thalassemia, chronic pain including headache/ opioid dependence, lung cancer, Crohn's disease, PAD, HTN, DLP, gastroparesis,, ambulatory dysfunction, chronic T11, T12, L2 L4 compression
PSH: Left upper lobectomy, cholecystectomy, PTCI
SH: Lives alone, former smoker,
All: Limited due to poor attention
General: Well developed. In no acute distress.
Cardio: Regular rate. Extremities are without cyanosis or edema.
Neuro:
Mental Status: Alert, oriented to self, hospital. Poor attention and increased processing time. Comprehension has improved. Follows simple requests. No hemineglect.
Cranial Nerves: Pupils are equally round, surgical. Extraocular movements intact. Visual rivers�full to confrontation. No facial weakness. Poor hearing. No dysarthria.
Motor: No pronator or leg drift.
Sensory: Preserved vibration at the ankles.
Coordination: No dysmetria on [id number].
Gait: deferred
Assessment and Plan:
I. TIA
II. Status migrainous. Chronic opioid use
III. Mild encephalopathy (toxic, vascular)
-Avoid cerebral hypoperfusion.
-Reglan, Benadryl as needed for moderate to severe headache. Will confirm tramadol allergy
-Avoid opioids
-Aspirin 81 mg once a day
-Brain MRI without elvis
-DVT prophylaxis.
I personally reviewed all radiology and labs along with past medical records pertinent to current medical problems. Total time spent in patient care is 35 minutes.
Thank you for allowing us to participate in the care of this patient. We will continue to follow. Please do not hesitate to contact us with any questions or concerns.
Objective Data
Vital Signs
Temp Pulse Resp BP Pulse Ox
37.3 C 74 20 116/50 97
03/01/24 07:37 03/01/24 09:30 03/01/24 07:37 03/01/24 08:16 03/01/24 08:30
Lab Results
03/01/24 05:46
03/01/24 05:46
PT 13.9 Sec (11.4-14.6) 02/29/24 18:38
INR 1.02 02/29/24 18:38
APTT 30.0 Sec (23.4-35.0) 02/29/24 18:38
Sodium 139 mmol/L (135-145) 03/01/24 05:46
Potassium 4.7 mmol/L (3.5-5.1) 03/01/24 05:46
BUN 9 mg/dl (7-17) 03/01/24 05:46
Glucose 89 mg/dl (70-99) 03/01/24 05:46
Calcium 9.1 mg/dl (8.4-10.2) 03/01/24 05:46
LDL Cholesterol, Calc 148 mg/dl 03/01/24 05:46
Patient Allergies
cephalexin [From Keflex] Allergy (Verified 09/11/23 16:20)
Hives
Influenza Virus Vaccines Allergy (Verified 09/11/23 16:20)
Unknown
NSAIDS (Non-Steroidal Anti-Inflamma [Nsaids] Allergy (Verified 09/11/23 16:20)
Migraines
Rqjljdc-RMW-AeV Reductase Inhibitor [Pngxxuo-Hjg-Wcn Reductase Inhibitor] Allergy (Verified 09/11/23 16:20)
acute inflammation of liver
Sulfa (Sulfonamide Antibiotics) Allergy (Verified 09/11/23 16:20)
Hives
tramadol Adverse Reaction (Severe, Verified 09/11/23 16:20)
Unknown
Vital Signs and Labs
-
Vital Signs and Labs:
Vital Signs
Temp Pulse Resp BP Pulse Ox
37.3 C 74 20 116/50 97
03/01/24 07:37 03/01/24 09:30 03/01/24 07:37 03/01/24 08:16 03/01/24 08:30
Lab Results
03/01/24 05:46
03/01/24 05:46
PT 13.9 Sec (11.4-14.6) 02/29/24 18:38
INR 1.02 02/29/24 18:38
APTT 30.0 Sec (23.4-35.0) 02/29/24 18:38
Sodium 139 mmol/L (135-145) 03/01/24 05:46
Potassium 4.7 mmol/L (3.5-5.1) 03/01/24 05:46
BUN 9 mg/dl (7-17) 03/01/24 05:46
Glucose 89 mg/dl (70-99) 03/01/24 05:46
Calcium 9.1 mg/dl (8.4-10.2) 03/01/24 05:46
LDL Cholesterol, Calc 148 mg/dl 03/01/24 05:46
Medications
-
Medications:
Generic Name Dose Route Start Last Admin
Trade Name Freq PRN Reason Stop Dose Admin
Acetaminophen 650 mg 02/29/24 15:59 02/29/24 16:38
Acetaminophen 325 Mg Tablet PO 03/28/24 15:58 650 mg
Q4HPRN PRN Administration
mild pain
Amlodipine Besylate 10 mg 03/01/24 08:00 03/01/24 08:16
Amlodipine 10 Mg Tablet PO 03/29/24 07:59 10 mg
DAILY LUIS F Administration
Aspirin 81 mg 03/01/24 08:00 03/01/24 08:17
Aspirin 81 Mg Chewable Tablet PO 03/29/24 07:59 81 mg
DAILY LUIS F Administration
Bisacodyl 10 mg 02/29/24 13:03
Bisacodyl 10 Mg Rectal Suppository RECTAL 03/28/24 13:02
[id number] PRN
constipation
Diphenhydramine HCl 25 mg 03/01/24 10:34
Diphenhydramine 50 Mg/Ml 1 Ml Vial IV 03/29/24 10:33
Q6HPRN PRN
headache
Hydromorphone HCl 0.25 mg 02/29/24 22:21 03/01/24 06:04
Hydromorphone 0.25 Mg/0.5 Ml Syringe IV 03/14/24 22:20 0.25 mg
Q3HPRN PRN Administration
severe pain
Sodium Chloride 1,000 mls @ 0 mls/hr 02/29/24 16:00
Nss IV 03/01/24 15:59
PER PROTOCOL LUIS F
Protocol
Per Protocol
Lorazepam 0.5 mg 02/29/24 20:00 03/01/24 08:15
Lorazepam 0.5 Mg Tablet PO 03/28/24 19:59 0.5 mg
BID LUIS F Administration
Losartan Potassium 25 mg 03/01/24 08:00 03/01/24 08:16
Losartan 25 Mg Tablet PO 03/29/24 07:59 25 mg
BID LUIS F Administration
Metoclopramide HCl 10 mg 03/01/24 10:34
Metoclopramide 10 Mg/2 Ml Vial IV 03/29/24 10:33
Q6HPRN PRN
headache
Ondansetron HCl 4 mg 02/29/24 19:57 03/01/24 08:14
Ondansetron 4 Mg/2 Ml Vial IV 03/28/24 19:56 4 mg
Q6HPRN PRN Administration
NAUSEA/VOMITING
Oxycodone HCl 5 mg 02/29/24 20:00 03/01/24 08:15
Oxycodone 5 Mg Regular Release Tablet PO 03/14/24 19:59 5 mg
BID LUIS F Administration
Pantoprazole Sodium 20 mg 02/29/24 20:00 03/01/24 08:15
Pantoprazole 20 Mg Delayed Release Tablet PO 03/28/24 19:59 20 mg
BID LUIS F Administration
Polyethylene Glycol 17 grams 02/29/24 13:03
Polyethylene Glycol Powder 17 Grams Packet PO 03/28/24 13:02
DAILYPRN PRN
constipation
Senna/Docusate Sodium 1 tablet 02/29/24 13:03
Docusate W/Senna (Danae-Colace) Tablet PO 03/28/24 13:02
BIDPRN PRN
constipation
Sodium Chloride 0 flush 02/29/24 14:00 03/01/24 08:14
Sodium Chloride 0.9% (Flush) Syringe IV 03/28/24 13:59 1 flush
PER PROTOCOL LUIS F Administration
Home Medications
-
Home Medications
amlodipine 10 mg tablet 10 mg PO DAILY Blood pressure 11/20/09
losartan 25 mg tablet 25 mg PO BID Blood pressure 11/18/21
ondansetron 4 mg disintegrating tablet 4 mg PO Q6HPRN PRN nausea and vomiting 01/07/22
pantoprazole 40 mg tablet,delayed release (Protonix) 20 mg (1/2 x 40 mg) PO BID Gastrointestinal Issue #0 tabs 09/01/23
aspirin 81 mg chewable tablet 81 mg PO DAILY Blood Clot Prevention/Tx 09/11/23
docusate sodium 100 mg capsule (Colace) 100 mg PO BID Constipation 02/29/24
lorazepam 0.5 mg tablet 0.5 mg PO BID Mental Health/Anxiety 02/29/24
mineral oil 15 ml PO DAILYPRN PRN constiaption 02/29/24
oxycodone 5 mg tablet 5 mg PO BID Pain 02/29/24
psyllium 1 packet PO DAILY Gastrointestinal Issue 02/29/24
--- NOTE | 2024-03-01 10:42 | W.PN.HOSP.TC ---
Today's Communication/Plan
-
Cardiology and neurology reeval. Ultrasound of the abdomen. PT OT eval
Assessment / Plan
Assessment / Plan
Physical exam:
General: Acutely ill
HEENT: Normocephalic, Atraumatic and Moist Mucous Membranes
Respiratory: Clear to Auscultation; Negative Wheezes, Rales or Rhonchi
Cardiac: Regular Rhythm and S1/S2
GI: Soft, mild tender and Nondistended
Musculoskeletal: No Clubbing, No Cyanosis and No Edema
Neuro: Awake, Alert and Oriented, no gross neurological deficits
Psych: Anxious
A/P:
Clinical picture consistent with Takotsubo:
On aspirin, amlodipine, losartan
Plan to add beta-blockers per cardiology
Cardiac catheterization on 02/28 nonobstructive CAD
Echocardiogram EF 55%, apical hypokinesis, and mild aortic stenosis
Discussed with daughter at bedside today on 03/01
Transient neurodeficits concerns for TIA/stroke versus ocular migraine:
Neurology evaluated the patient on 02/28 and patient declined TNK treatment
CT of the head
CTA of the head and neck no LVO
MRI of the brain no acute abnormality but chronic changes
On asa
Statin intolerant
Hyperlipidemia:
Statin intolerant
Check lipid--> LDL 148, triglycerides 190
Probably a good candidate for PCSK9 inhibitors
Aortic stenosis:
Avoid hypotension
Update echocardiogram and mild AAS
Abdominal discomfort:
Likely gastroparesis related
Cont PPI
Change diet to 6 small meals
Ultrasound unremarkable for acute findings
Hypertension:
Continue home antihypertensives
Lung cancer:
Status post lobectomy and will need follow-up surveillance as outpatient
Peripheral vascular disease:
Continue aspirin and known statin intolerance
Chronic pain syndrome with chronic opioid dependence:
Continue her oral pain medicines
Added IV narcotics as needed
DVT prophylaxis:
Start Lovenox SQ
CODE STATUS:
Full code
time 54 min
Anticipated Discharge: 24 - 48 hours
Subjective/Interval History
-
Date of Service: March 01, 2024
Noticed yesterday events. Alert and oriented. Abdominal discomfort and she claims is worse without eating. She has discomfort on and off.
Objective Data
-
Labs:
Laboratory Results
03/01/24
05:46
WBC 5.7
Hgb 11.8 L
Hct 36.4 L
Plt Count 290
Sodium 139
Potassium 4.7
Chloride 103
Carbon Dioxide 25
BUN 9
Creatinine 0.6
Glucose 89
Calcium 9.1
Vital Signs:
Vital Signs
Temp Pulse Resp BP Pulse Ox
99.1 F 74 20 116/50 97
03/01/24 07:37 03/01/24 09:30 03/01/24 07:37 03/01/24 08:16 03/01/24 08:30
--- NOTE | 2024-03-01 11:17 | CM ---
Addendum entered by CHICO Covarrubias 03/01/24 15:35:
In anticipation of the weekend and possible home health needs, sent referral to [facility].
Will await PT OT evaluations, confirm recommendations and DC plan from there.
Will follow.
Original Note:
CM following for DC planning needs.
Met w/ patient and dtr. at bedside to complete initial assessment.
Pt. resides alone in a private 1 story apartment with 14 [address]. Functionally, patient is indep. w/ use of a SPC as needed.
Pt. had a stay at [facility] in August 2023 with bad experience, followed by home health thru [facility].
Pt. still drives.
Pt. concerned about renewing her Oxycodone Rx.
We discussed role of CM and potential DC needs. If VN needed, pt. would be agreeable to [facility].
TT to Attending MD to request PT-OT consult, when medically able to participate.
Goal is to return to home w/ ?VN
--- NOTE | 2024-03-01 11:38 | PTCARENOTE ---
patient to MRI and then U/S abd. via stretcher accompanied by vol. staff. daughter at bedside.
--- NOTE | 2024-03-01 13:16 | PTCARENOTE ---
patient returned back from testing stating that she is having severe pain in abd., Dilaudid IV given as ordered.
--- NOTE | 2024-03-01 13:20 | W.PN.CD ---
Today's Communication / Plan
-
add Toprol XL for Takutsubo cardiomyopathy
please call us back with additional questions
Impression / Plan
-
Chest pain, anterior TWI
-echo: EF 55%, apical hypokinesis
-non-obstructive CAD on cath
-consistent with Takutsubo cardiomyopathy
-add Toprol XL 25mg daily
Dyslipidemia:
-statin intolerant
-discuss PCSK9 inhibitors as OP
-check lipids
Aortic stenosis:
-mild
HTN:
-continue meds and monitor
Hx lung cancer s/p surgery
Chronic pain, anxiety: on meds as OP
PAD with hx iliac stenting: ASA
Physical Exam
Vital Signs/Labs
Vital Signs
Temp Pulse Resp BP Pulse Ox
99.1 F 98 20 116/50 97
03/01/24 07:37 03/01/24 11:15 03/01/24 07:37 03/01/24 08:16 03/01/24 08:30
02/29/24 03/01/24 03/02/24
06:59 06:59 06:59
Actual Weight 65 kg 56.7 kg
03/01/24 05:46
03/01/24 05:46
PT 13.9 Sec (11.4-14.6) 02/29/24 18:38
INR 1.02 02/29/24 18:38
APTT 30.0 Sec (23.4-35.0) 02/29/24 18:38
Magnesium 1.9 mg/dl (1.6-2.3) 02/29/24 18:38
Triglycerides 190 mg/dl (10-149) H 03/01/24 05:46
LDL Cholesterol, Calc 148 mg/dl 03/01/24 05:46
VLDL Cholesterol, Calc 38 mg/dl (0-30) H 03/01/24 05:46
HDL Cholesterol 49 mg/dl 03/01/24 05:46
LAB Results
02/29/24 02/29/24 02/29/24
06:40 09:37 13:00
Troponin I 0.019 0.022 Cancelled
02/29/24 02/29/24 03/01/24
18:38 23:45 05:46
Troponin I 0.051 H* 0.079 H* D 0.069 H*
Physical Exam
Constitutional: No acute distress and Comfortable
EENT: Moist mucous membranes
Cardiovascular: Rhythm & rate is regular, Pedal edema is absent, JVD pressure is normal and Systolic murmur present
Respiratory: Respiratory effort normal and Lungs clear to auscul.
Neuro/Psych: AO x 3
Data Reviewed
-
Date of Service: March 01, 2024
EKG: Other (Tele: SR 70s)
Labs: Labs Reviewed by me
[2024-03-01] MEDS: TOPROL XL 25 MG PO (14:16)
[2024-03-01] MEDS: LOVENOX 40 MG SC (17:46)
[2024-03-01 18:58] LABS: Vitamin B12 243 pg/ml (239-931)
[2024-03-01 20:58] LABS: TSH Reflex To Free T4 0.41 uIU/ml (0.47-4.68)
[2024-03-01 21:24] LABS: Free T4 1.09 ng/dl (0.78-2.19)
[2024-03-02] VITALS (15 sets, daily range): BP systolic 65–123; BP diastolic 34–76; PULSE 74
--- NOTE | 2024-03-02 01:43 | PTCARENOTE ---
Addendum entered by Shazia Stanley RN 03/02/24 05:07:
BP 65/43 Pt in bed and denies dizziness or lightheadedness. OCCUPATIONAL THERAPIST PER DIEM made aware. NS 250ml bolus given. BP 94/47
Original Note:
NSR on monitor. NIHSS 0. Pt denies any pain, SOB or nausea. Ambulates in the room with x1 assist. Resting comfortable in the bed this shift
[2024-03-02] MEDS: NSS 250 IV (03:48)
[2024-03-02 04:22] LABS: Hematocrit 35.6 % (37.0-47.0); Hemoglobin 11.3 g/dL (12.0-16.0); Mean Corp Hgb Conc. 31.7 g/dL (33.0-37.0); Mean Corpuscular Hgb 23.9 pg (27.0-31.0); Mean Corpuscular Volume 75.4 fL (81.0-99.0); Mean Platelet Volume 10.5 fL (7.4-10.4); Platelet Count 282 10^3/uL (130-400); Red Blood Cell Count 4.72 10^6/uL (4.20-5.40); Red Cell Dist. Width 14.4 % (11.5-14.5); White Blood Cell Count 5.6 10^3/uL (4.8-10.8)
[2024-03-02 05:03] LABS: Blood Urea Nitrogen 13 mg/dl (7-17); Calcium 8.9 mg/dl (8.4-10.2); Carbon Dioxide 29 mmol/L (22-30); Chloride 101 mmol/L (98-107); Estimated Creatinine Clearance 59 ml/min; Glucose 89 mg/dl (70-99); Potassium 4.3 mmol/L (3.5-5.1); Sodium 137 mmol/L (135-145); eGFR > 60.00
[2024-03-02] MEDS: ROXICODONE 5 MG PO ×2 (08:07→20:04)
[2024-03-02] MEDS: TOPROL XL 25 MG PO (08:07)
[2024-03-02] MEDS: ATIVAN 0.5 MG PO ×2 (08:08→20:04)
[2024-03-02] MEDS: LOW STRENGTH ASPIRIN 81 MG PO (08:08)
[2024-03-02] MEDS: PROTONIX 20 MG PO ×2 (08:09→20:06)
--- NOTE | 2024-03-02 09:13 | W.PN.HOSP.TC ---
Today's Communication/Plan
-
Adjust antihypertensive medications. Discharge plan
Assessment / Plan
Assessment / Plan
Physical exam:
General: Acutely ill
HEENT: Normocephalic, Atraumatic and Moist Mucous Membranes
Respiratory: Clear to Auscultation; Negative Wheezes, Rales or Rhonchi
Cardiac: Regular Rhythm and S1/S2
GI: Soft, mild tender and Nondistended
Musculoskeletal: No Clubbing, No Cyanosis and No Edema
Neuro: Awake, Alert and Oriented, no gross neurological deficits
Psych: Anxious
A/P:
Clinical picture consistent with Takotsubo:
On aspirin, amlodipine, losartan
Plan to add beta-blockers per cardiology
Cardiac catheterization on 02/28 nonobstructive CAD
Echocardiogram EF 55%, apical hypokinesis, and mild aortic stenosis
Discussed with daughter at bedside today on 03/01
Hypotension:
Likely medications related
Will hold some of her blood pressure medicine since we started on beta-blockers we might need to restart either a lower dose or same doses depending on her blood pressure over the next 24 hours.
Transient neurodeficits concerns for TIA/stroke versus ocular migraine:
Neurology evaluated the patient on 02/28 and patient declined TNK treatment
CT of the head
CTA of the head and neck no LVO
MRI of the brain no acute abnormality but chronic changes
On asa
Statin intolerant
Hyperlipidemia:
Statin intolerant
Check lipid--> LDL 148, triglycerides 190
Probably a good candidate for PCSK9 inhibitors
Aortic stenosis:
Avoid hypotension
Update echocardiogram and mild AAS
Abdominal discomfort:
Likely gastroparesis related
Cont PPI
Change diet to 6 small meals
Ultrasound unremarkable for acute findings
Hypertension:
Continue home antihypertensives
Lung cancer:
Status post lobectomy and will need follow-up surveillance as outpatient
Peripheral vascular disease:
Continue aspirin and known statin intolerance
Chronic pain syndrome with chronic opioid dependence:
Continue her oral pain medicines
Added IV narcotics as needed
DVT prophylaxis:
Start Lovenox SQ
CODE STATUS:
Full code
Anticipated Discharge: Within 24 hours
Subjective/Interval History
-
Date of Service: March 02, 2024
Patient blood pressure dropped earlier this morning. No chest pain or shortness of breath or abdominal pain today.
Objective Data
-
Labs:
Laboratory Results
03/02/24
03:36
WBC 5.6
Hgb 11.3 L
Hct 35.6 L
Plt Count 282
Sodium 137
Potassium 4.3
Chloride 101
Carbon Dioxide 29
BUN 13
Creatinine 0.6
Glucose 89
Calcium 8.9
Vital Signs:
Vital Signs
Temp Pulse Resp BP Pulse Ox
98.5 F 67 16 94/47 98
03/02/24 07:07 03/02/24 06:15 03/02/24 07:07 03/02/24 05:01 03/02/24 07:07
I&O
03/01/24 03/02/24 03/03/24
06:59 06:59 06:59
Intake Total 250 / 250
Balance 250 / 250
[2024-03-02] MEDS: COZAAR 25 MG PO (10:20)
[2024-03-02] MEDS: NORVASC 10 MG PO (10:20)
--- NOTE | 2024-03-02 13:29 | W.PN.NEURO.1 ---
Today's Communication / Plan
-
.
Subjective/Objective
Subjective Data
Date of Service: March 02, 2024
Neurology follow-up note.
Ms. Webber endorses significant improvement of headache. No reports of change in vision.
The patient admits to have headaches with visual field loss in the past.
Brain MRI showed chronic lacunar putamenal and left cerebellar infarcts, subcortical white matter disease and atrophy as well as significant cervical DJD.
Ms. Webber has been on chronic opioid therapy for back pain.
Labs: LDL�148, Mg-1.9.
PMH: lung cancer, thalassemia, chronic pain including headache/ opioid dependence, Crohn's disease, PAD, HTN, DLP, gastroparesis, ambulatory dysfunction, chronic T11, T12, L2 L4 compression
PSH: Left upper lobectomy, cholecystectomy, PTCI
SH: Lives alone, former smoker,
All:positive for headache, hearing impairment, neg for change in vision, chest pain
General: Well developed. In no acute distress.
Cardio: Regular rate. Extremities are without cyanosis or edema.
Neuro:
Mental Status: Alert, oriented to self, hospital, month, year, date. Good attention and comprehension. Follows complex requests. Nonfluent.
Cranial Nerves: Pupils are equally round, surgical. Extraocular movements intact. Visual rivers�full to confrontation. No facial weakness. Poor hearing. No dysarthria.
Motor: No pronator or leg drift.
Sensory: Preserved vibration at the ankles.
Coordination: No dysmetria on [id number].
Gait: deferred
Assessment and Plan:
I. Migraine with aura, less likely TIA
II. 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
III. Chronic chronic T11, T12, L2 L4 compression/opioid dependence
-Avoid cerebral hypoperfusion.
-Consider Topamax for headache prophylaxis.
-Outpatient neurology follow-up
-Continue aspirin 81 mg once a day
-DVT prophylaxis.
-OP Neurology follow up
-Please recall neurology services any questions or concerns
I personally reviewed all radiology and labs along with past medical records pertinent to current medical problems. Total time spent in patient care is 35 minutes.
Thank you for allowing us to participate in the care of this patient. lease do not hesitate to contact us with any questions or concerns.
Objective Data
Vital Signs
Temp Pulse Resp BP Pulse Ox
36.9 C 83 16 123/76 95
03/02/24 11:29 03/02/24 11:27 03/02/24 11:29 03/02/24 11:27 03/02/24 11:29
Lab Results
03/02/24 03:36
03/02/24 03:36
PT 13.9 Sec (11.4-14.6) 02/29/24 18:38
INR 1.02 02/29/24 18:38
APTT 30.0 Sec (23.4-35.0) 02/29/24 18:38
Sodium 137 mmol/L (135-145) 03/02/24 03:36
Potassium 4.3 mmol/L (3.5-5.1) 03/02/24 03:36
BUN 13 mg/dl (7-17) 03/02/24 03:36
Glucose 89 mg/dl (70-99) 03/02/24 03:36
Calcium 8.9 mg/dl (8.4-10.2) 03/02/24 03:36
LDL Cholesterol, Calc 148 mg/dl 03/01/24 05:46
Vitamin B12 Cancelled 03/01/24 16:04
Patient Allergies
cephalexin [From Keflex] Allergy (Verified 09/11/23 16:20)
Hives
Influenza Virus Vaccines Allergy (Verified 09/11/23 16:20)
Unknown
NSAIDS (Non-Steroidal Anti-Inflamma [Nsaids] Allergy (Verified 09/11/23 16:20)
Migraines
Ctlglhv-NOS-LwQ Reductase Inhibitor [Agppvob-Qxz-Gfm Reductase Inhibitor] Allergy (Verified 09/11/23 16:20)
acute inflammation of liver
Sulfa (Sulfonamide Antibiotics) Allergy (Verified 09/11/23 16:20)
Hives
tramadol Adverse Reaction (Severe, Verified 09/11/23 16:20)
Unknown
Vital Signs and Labs
-
Vital Signs and Labs:
Vital Signs
Temp Pulse Resp BP Pulse Ox
36.9 C 83 16 123/76 95
03/02/24 11:29 03/02/24 11:27 03/02/24 11:29 03/02/24 11:27 03/02/24 11:29
Lab Results
03/02/24 03:36
03/02/24 03:36
PT 13.9 Sec (11.4-14.6) 02/29/24 18:38
INR 1.02 02/29/24 18:38
APTT 30.0 Sec (23.4-35.0) 02/29/24 18:38
Sodium 137 mmol/L (135-145) 03/02/24 03:36
Potassium 4.3 mmol/L (3.5-5.1) 03/02/24 03:36
BUN 13 mg/dl (7-17) 03/02/24 03:36
Glucose 89 mg/dl (70-99) 03/02/24 03:36
Calcium 8.9 mg/dl (8.4-10.2) 03/02/24 03:36
LDL Cholesterol, Calc 148 mg/dl 03/01/24 05:46
Vitamin B12 Cancelled 03/01/24 16:04
Medications
-
Medications:
Generic Name Dose Route Start Last Admin
Trade Name Freq PRN Reason Stop Dose Admin
Acetaminophen 650 mg 02/29/24 15:59 02/29/24 16:38
Acetaminophen 325 Mg Tablet PO 03/28/24 15:58 650 mg
Q4HPRN PRN Administration
mild pain
Amlodipine Besylate 10 mg 03/01/24 08:00 03/02/24 10:20
Amlodipine 10 Mg Tablet PO 03/29/24 07:59 10 mg
DAILY LUIS F Administration
Aspirin 81 mg 03/01/24 08:00 03/02/24 08:08
Aspirin 81 Mg Chewable Tablet PO 03/29/24 07:59 81 mg
DAILY LUIS F Administration
Bisacodyl 10 mg 02/29/24 13:03
Bisacodyl 10 Mg Rectal Suppository RECTAL 03/28/24 13:02
[id number] PRN
constipation
Diphenhydramine HCl 25 mg 03/01/24 10:34
Diphenhydramine 50 Mg/Ml 1 Ml Vial IV 03/29/24 10:33
Q6HPRN PRN
headache
Enoxaparin Sodium 40 mg 03/01/24 18:00 03/01/24 17:46
Enoxaparin Sodium 40 Mg/0.4 Ml Syringe SC 03/29/24 17:59 40 mg
QPM LUIS F Administration
Hydromorphone HCl 0.25 mg 02/29/24 22:21 03/01/24 13:13
Hydromorphone 0.25 Mg/0.5 Ml Syringe IV 03/14/24 22:20 0.25 mg
Q3HPRN PRN Administration
severe pain
Lorazepam 0.5 mg 02/29/24 20:00 03/02/24 08:08
Lorazepam 0.5 Mg Tablet PO 03/28/24 19:59 0.5 mg
BID LUIS F Administration
Losartan Potassium 25 mg 03/01/24 08:00 03/02/24 10:20
Losartan 25 Mg Tablet PO 03/29/24 07:59 25 mg
BID LUIS F Administration
Metoclopramide HCl 10 mg 03/01/24 10:34
Metoclopramide 10 Mg/2 Ml Vial IV 03/29/24 10:33
Q6HPRN PRN
headache
Metoprolol Succinate 25 mg 03/01/24 14:00 03/02/24 08:07
Metoprolol 25 Mg Extended Release Tablet PO 03/29/24 13:59 25 mg
DAILY LUIS F Administration
Ondansetron HCl 4 mg 02/29/24 19:57 03/01/24 08:14
Ondansetron 4 Mg/2 Ml Vial IV 03/28/24 19:56 4 mg
Q6HPRN PRN Administration
NAUSEA/VOMITING
Oxycodone HCl 5 mg 02/29/24 20:00 03/02/24 08:07
Oxycodone 5 Mg Regular Release Tablet PO 03/14/24 19:59 5 mg
BID LUIS F Administration
Pantoprazole Sodium 20 mg 02/29/24 20:00 03/02/24 08:09
Pantoprazole 20 Mg Delayed Release Tablet PO 03/28/24 19:59 20 mg
BID LUIS F Administration
Polyethylene Glycol 17 grams 02/29/24 13:03
Polyethylene Glycol Powder 17 Grams Packet PO 03/28/24 13:02
DAILYPRN PRN
constipation
Senna/Docusate Sodium 1 tablet 02/29/24 13:03
Docusate W/Senna (Danae-Colace) Tablet PO 03/28/24 13:02
BIDPRN PRN
constipation
Sodium Chloride 0 flush 02/29/24 14:00 03/01/24 13:14
Sodium Chloride 0.9% (Flush) Syringe IV 03/28/24 13:59 1 flush
PER PROTOCOL LUIS F Administration
Home Medications
-
Home Medications
amlodipine 10 mg tablet 10 mg PO DAILY Blood pressure 11/20/09
losartan 25 mg tablet 25 mg PO BID Blood pressure 11/18/21
ondansetron 4 mg disintegrating tablet 4 mg PO Q6HPRN PRN nausea and vomiting 01/07/22
pantoprazole 40 mg tablet,delayed release (Protonix) 20 mg (1/2 x 40 mg) PO BID Gastrointestinal Issue #0 tabs 09/01/23
aspirin 81 mg chewable tablet 81 mg PO DAILY Blood Clot Prevention/Tx 09/11/23
docusate sodium 100 mg capsule (Colace) 100 mg PO BID Constipation 02/29/24
lorazepam 0.5 mg tablet 0.5 mg PO BID Mental Health/Anxiety 02/29/24
mineral oil 15 ml PO DAILYPRN PRN constiaption 02/29/24
oxycodone 5 mg tablet 5 mg PO BID Pain 02/29/24
psyllium 1 packet PO DAILY Gastrointestinal Issue 02/29/24
--- NOTE | 2024-03-02 16:50 | PTCARENOTE ---
Pt received this am with no c/o of any headache or visual changed. Assisted oob to the chair for breakfast, gait steady. Denies any chest pain or sob.
[2024-03-02] MEDS: LOVENOX 40 MG SC (17:20)
[2024-03-03 01:54] VITALS: BP 100/57
[2024-03-03 02:22] LABS: Hematocrit 33.8 % (37.0-47.0); Hemoglobin 10.8 g/dL (12.0-16.0); Mean Corpuscular Hgb 24.1 pg (27.0-31.0); Mean Corpuscular Volume 75.4 fL (81.0-99.0); Mean Platelet Volume 10.7 fL (7.4-10.4); Platelet Count 256 10^3/uL (130-400); Red Blood Cell Count 4.48 10^6/uL (4.20-5.40); Red Cell Dist. Width 14.1 % (11.5-14.5); White Blood Cell Count 5.2 10^3/uL (4.8-10.8)
[2024-03-03 02:45] LABS: Blood Urea Nitrogen 13 mg/dl (7-17); Calcium 8.7 mg/dl (8.4-10.2); Carbon Dioxide 26 mmol/L (22-30); Chloride 103 mmol/L (98-107); Estimated Creatinine Clearance 59 ml/min; Glucose 98 mg/dl (70-99); Sodium 135 mmol/L (135-145); eGFR > 60.00
--- NOTE | 2024-03-03 03:01 | PTCARENOTE ---
Assumed care of the pt @ 1900 Pt AAOx3 denies headache or vision changes NIH 0 SR on the monitor denies cp vss. Pt ambulates independently in the room. Call ivan within reach.
[2024-03-03 04:51] VITALS: BP 97/82
[2024-03-03] MEDS: ZOFRAN 4 MG IV (04:57)
[2024-03-03 07:40] VITALS: BP 110/54
[2024-03-03] MEDS: LOW STRENGTH ASPIRIN 81 MG PO (08:25)
[2024-03-03] MEDS: ROXICODONE 5 MG PO (08:25)
[2024-03-03] MEDS: TOPROL XL 25 MG PO (08:25)
[2024-03-03] MEDS: ATIVAN 0.5 MG PO (08:25)
[2024-03-03] MEDS: PROTONIX 20 MG PO (08:25)
--- NOTE | 2024-03-03 08:55 | W.PN.HOSP.TC ---
Today's Communication/Plan
-
Discharge planning today
Assessment / Plan
Assessment / Plan
Physical exam:
General: No acute distress today
HEENT: Normocephalic, Atraumatic and Moist Mucous Membranes
Respiratory: Clear to Auscultation; Negative Wheezes, Rales or Rhonchi
Cardiac: Regular Rhythm and S1/S2
GI: Soft, mild tender and Nondistended
Musculoskeletal: No Clubbing, No Cyanosis and No Edema
Neuro: Awake, Alert and Oriented, no gross neurological deficits
Psych: Anxious
A/P:
Clinical picture consistent with Takotsubo:
On aspirin and beta-blockers
Held losartan and amlodipine. Discontinue amlodipine due to low blood pressures and restart losartan as outpatient and continue beta-blockers.
Plan added beta-blockers per cardiology
Cardiac catheterization on 02/28 nonobstructive CAD
Echocardiogram EF 55%, apical hypokinesis, and mild aortic stenosis
Discussed with daughter at bedside today prior
Plan to discharge home today and patient in agreement
Hypotension:
Likely medications related
Plan to continue beta-blockers and hold ARB for 24 hours but restart as outpatient. Discontinue amlodipine. Patient will discuss with cardiology and PCP about those changes as outpatient and will continue to monitor her blood pressure as
outpatient as well.
Transient neurodeficits concerns for TIA/stroke versus ocular migraine--> likely migraine related:
Neurology evaluated the patient on 02/28 and patient declined TNK treatment
CT of the head
CTA of the head and neck no LVO
MRI of the brain no acute abnormality but chronic changes
On asa
Statin intolerant
Hyperlipidemia:
Statin intolerant
Check lipid--> LDL 148, triglycerides 190
Probably a good candidate for PCSK9 inhibitors
Aortic stenosis:
Avoid hypotension
Update echocardiogram and mild AAS
Abdominal discomfort:
Likely gastroparesis related
Cont PPI
Change diet to 6 small meals
Ultrasound unremarkable for acute findings
Hypertension:
Continue home antihypertensives
Lung cancer:
Status post lobectomy and will need follow-up surveillance as outpatient
Peripheral vascular disease:
Continue aspirin and known statin intolerance
Chronic pain syndrome with chronic opioid dependence:
Continue her oral pain medicines
Added IV narcotics as needed
DVT prophylaxis:
Start Lovenox SQ
CODE STATUS:
Full code
Anticipated Discharge: Today
Subjective/Interval History
-
Date of Service: March 03, 2024
Patient feels better today. Blood pressure stable. No new complaints but concerns that she does not have refill of her pain medications so I told her I will give her a couple days until she gets in touch with her pain specialist.
Objective Data
-
Labs:
Laboratory Results
03/03/24
02:11
WBC 5.2
Hgb 10.8 L
Hct 33.8 L
Plt Count 256
Sodium 135
Potassium 4.0
Chloride 103
Carbon Dioxide 26
BUN 13
Creatinine 0.5 L
Glucose 98
Calcium 8.7
Vital Signs:
Vital Signs
Temp Pulse Resp BP Pulse Ox
98.3 F 80 18 110/54 99
03/03/24 07:39 03/03/24 08:00 03/03/24 07:39 03/03/24 07:40 03/03/24 07:39
I&O
03/02/24 03/03/24 03/04/24
06:59 06:59 06:59
Intake Total 250 / 250
Balance 250 / 250
--- NOTE | 2024-03-03 09:53 | PTCARENOTE ---
The patient is aaox3, vss, 99% on RA. NSR is noted on the monitor. She complains of pain in lower back and rates it an 7/10. In addition, she states that shes having pain in her abdomen and states that it her 'gastroparesis' and rates it a 7/10 on
scale. Scheduled Roxicodone given as ordered. She has no complaint of dizziness or lightheadedness and her gait is steady. NIHSS is scored a 0.
While I was in the room she kept repeatedly saying that 'the doctors need to order my pain medications for when I go home.' I asked her who initially prescribed them for her and she stated that it was her primary doctor but then she would continue
to say, over and over again, that the doctors here need to prescribe them for her for when she goes home. I explained to her that she needed to go through her primary care physician for her pain medication since they ordered it originally.
--- NOTE | 2024-03-03 11:30 | PTCARENOTE ---
The patient is being discharged, she stated that she does not want VN.
[2024-03-03 11:37] VITALS: BP 134/83
--- NOTE | 2024-03-03 13:12 | W.DCSUMMARY ---
Discharge Summary
Discharge Data
Date of Admission: 02/29/24
Date of Discharge: 03/03/24
-
Pending Results: No
Hospital Course
Patient is 78 years old female with history of chronic pain, lung cancer status post lobectomy, peripheral vascular disease, hypertension, former tobacco user, statin intolerance, mild to moderate aortic stenosis, came into the hospital with chest
pain and abdominal discomfort. Cardiology consulted. She was started on heparin drip and ACS protocol. She underwent cardiac catheterization and no obstructive CAD was found. She also had an echocardiogram with some very defined hypokinesis but
normal EF. Cardiology felt that her presentation was consistent with Takotsubo cardiomyopathy. She was started on beta-blockers. Course complicated with sudden onset of neuro-deficits associated with headache and neurology was consulted. After
stroke workup there was no evidence of stroke or TIA but it was felt that her presentation was consistent with migraines with aura. MRI of the brain no acute infarct or hemorrhage but chronic changes and also disc cervical pathology. Neurology
will follow-up with patient as outpatient for consideration of preventative medication such as Topamax or other. Her abdominal ultrasound was unremarkable. It was felt most of her symptoms were related to gastroparesis and she was started on small
frequent meals and she tolerated diet without any problems. Her abdominal pain subsided. Patient blood pressure was significantly on the low side after initiation of beta-blockers therefore calcium channel pelon was discontinued and she was
asked to hold ARB for another 24 hours recheck blood pressure at home and restart them. Her blood pressure relatively stable today. Also discussed with patient to check her blood pressure at home and keep a log and discussed with primary care
physician and afterschool babysitter as outpatient on her upcoming appointments. She was kept on aspirin and since she is intolerant to statins there will be a consideration for PCSK9 inhibitor as outpatient. She also asked for short supply of pain
medications until she get in touch with her pain specialist and I sent to her pharmacy a short supply. Patient has participated with PT and OT and they recommended home health. I placed an order for case resolution specialist to arrange for home health.
Patient otherwise wants to go home. She will be discharged relatively stable condition today.
Discharge duration: 35 minutes
Discharge Plan
-
Patient Disposition: Home with Home Care
Discharge Diagnosis/Procedures: Takotsubo cardiomyopathy. Migraine. Hypotension. Hypertension. Gastroparesis.
Diet: Low Cholesterol
Activity: As tolerated
Driving Restrictions: No driving for 24 hours
Blood Work: Please PCP to order CBC, BMP within 1 week
Other Services: Cardiac Rehab
Specialty Instructions: Weigh Daily- Call MD for wt gain/loss 3 lbs overnight/5 lbs in 1 week
Stand Alone Forms: DC Instructions- Cath/EP Lab
Referrals:
Fior Olivera MD [Active] - in two to four weeks
Geeta Miller CRNP [Specified Professional Personl] - 03/20/24 11:20 am
Marlon Hunter MD [Family Provider] - in less than 1 week
Prescriptions:
New
metoprolol succinate 25 mg Tablet Extended Release 24 Hr
25 mg PO DAILY 30 Days Qty: 30 0RF
Continued
ondansetron 4 mg tablet,disintegrating
4 mg PO Q6HPRN PRN (Reason: nausea and vomiting)
pantoprazole [Protonix] 40 mg tablet,delayed release (DR/EC)
20 mg PO BID Qty: 0 0RF
aspirin 81 mg Tablet,Chewable
81 mg PO DAILY
lorazepam 0.5 mg tablet
0.5 mg PO BID
mineral oil Oil
15 ml PO DAILYPRN PRN (Reason: constiaption)
psyllium Packet
1 packet PO DAILY
docusate sodium [Colace] 100 mg Capsule
100 mg PO BID
Changed
oxycodone 5 mg tablet
5 mg PO BID Qty: 4 0RF
Held
losartan 25 mg tablet
25 mg PO BID
Hold Instructions: Resume on 03/05/24.
Discontinued
amlodipine 10 MG tablet
10 mg PO DAILY
Discharge Orders:
Discharge Patient (As Directed); Ordered 03/03/24
Ordered By: Cam Turner
Care Plan Goals
Care Plan Goals:
Problem: Readiness for enhanced knowledge related to diagnosis and treatment plan
Goal: Understand your diagnosis and treatment plan needs, including medications if applicable.
Instructions: Know your diagnosis, underlying causes and treatment plan options, including medications if applicable. Consult with your health care team to learn about your diagnosis and treatment plan, including medications if applicable.
Discharge Date and Time
Discharge Date/Time: 03/03/24 12:14
Print Language: RWANDAN
--- NOTE | 2024-03-03 13:41 | CHAP ---
Visited Ms. Webber at 10:55am. She was upset at that point. She welcomed prayer, which calmed her. Emotional and spiritual support provided.
== END 2024-03-03 12:14 | disposition home health service (06) | DRG 287 ==
LOC: IVU 11:12
PROVIDERS: Emergency Medicine; Nurse Practitioner; Registered Nurse; Student in an Organized Health Care Education/Training Program; ADMITTING PHYSICIAN Hospitalist; CONSULT PHYSICIAN Internal Medicine; EMERGENCY PHYSICIAN Emergency Medicine; FAMILY PHYSICIAN Family Medicine; OTHER PHYSICIAN Psychiatry & Neurology Neurology
PROC: 4A023N7 Measurement of Cardiac Sampling and Pressure, Left Heart, Percutaneous Approach (ICD-10-PCS; 2024-02-29)
PROC: B2111ZZ Fluoroscopy of Multiple Coronary Arteries using Low Osmolar Contrast (ICD-10-PCS; 2024-02-29)
DX: I51.81 Takotsubo syndrome (principal); F11.20 Opioid dependence, uncomplicated; R47.01 Aphasia; I10 Essential (primary) hypertension; K31.84 Gastroparesis; E78.00 Pure hypercholesterolemia, unspecified; E11.43 Type 2 diabetes mellitus with diabetic autonomic (poly)neuropathy; D56.9 Thalassemia, unspecified; G43.109 Migraine with aura, not intractable, without status migrainosus; I35.0 Nonrheumatic aortic (valve) stenosis; I44.0 Atrioventricular block, first degree; G89.4 Chronic pain syndrome; E11.51 Type 2 diabetes mellitus with diabetic peripheral angiopathy without gangrene; R26.2 Difficulty in walking, not elsewhere classified; R47.1 Dysarthria and anarthria; G31.9 Degenerative disease of nervous system, unspecified; M47.812 Spondylosis without myelopathy or radiculopathy, cervical region; I25.10 Atherosclerotic heart disease of native coronary artery without angina pectoris; K21.9 Gastro-esophageal reflux disease without esophagitis; H91.90 Unspecified hearing loss, unspecified ear; I95.9 Hypotension, unspecified; Z60.2 Problems related to living alone; Z90.2 Acquired absence of lung [part of]; Z85.118 Personal history of other malignant neoplasm of bronchus and lung; Z90.49 Acquired absence of other specified parts of digestive tract; Z87.891 Personal history of nicotine dependence; Z88.1 Allergy status to other antibiotic agents; Z88.5 Allergy status to narcotic agent; Z88.2 Allergy status to sulfonamides; Z88.7 Allergy status to serum and vaccine; Z79.82 Long term (current) use of aspirin
CPT/HCPCS: 70450; 70496; 70498; 70551; 71045; 76700; 76937; 80048; 80053; 80061; 82607; 82962; 83036; 83735; 84439; 84443; 84484; 85025; 85027; 85610; 85730; 93005; 93306; 93458; 96374; 97116; 97162; 97166; 99152; 99153; 99285; C1894; Q9967

== ENCOUNTER 2024-03-29 05:21 | Emergency (ER) | payer OTHER, SELFPAY ==
[2024-03-29 05:25] VITALS: BP 149/89
[2024-03-29 05:58] LABS: % Basophils 0.7 % (0-2); % Eosinophils 1.4 % (0-6); % Immature Granulocytes 0.2 % (0-0.5); % Lymphocytes 33.6 % (20.5-51.1); % Monocytes 4.8 % (1.7-9.3); % Neutrophils 59.3 % (42.2-75.2); Absolute Eosinophils 0.1 10^3/uL (0-0.7); Absolute Lymphocytes 1.9 10^3/uL (1.2-3.4); Absolute Monocytes 0.3 10^3/uL (0.1-0.6); Absolute Neutrophils 3.3 10^3/uL (1.4-6.5); Hematocrit 40.7 % (37.0-47.0); Hemoglobin 13.2 g/dL (12.0-16.0); Mean Corp Hgb Conc. 32.4 g/dL (33.0-37.0); Mean Corpuscular Hgb 23.6 pg (27.0-31.0); Mean Corpuscular Volume 72.8 fL (81.0-99.0); Mean Platelet Volume 9.8 fL (7.4-10.4); Nucleated Red Blood Cells % 0 %; Platelet Count 257 10^3/uL (130-400); Red Blood Cell Count 5.59 10^6/uL (4.20-5.40); Red Cell Dist. Width 13.6 % (11.5-14.5); White Blood Cell Count 5.6 10^3/uL (4.8-10.8)
[2024-03-29 06:00] VITALS: BMI 23.4
[2024-03-29 06:14] VITALS: BP 113/69
[2024-03-29 06:24] LABS: Troponin I < 0.012 ng/ml
[2024-03-29 06:59] LABS: ALT (SGPT) 14 U/L (0-35); AST (SGOT) 27 U/L (14-36); Alkaline Phosphatase 114 U/L (38-126); Blood Urea Nitrogen 8 mg/dl (7-17); Calcium 9.3 mg/dl (8.4-10.2); Carbon Dioxide 23 mmol/L (22-30); Chloride 105 mmol/L (98-107); Estimated Creatinine Clearance 62 ml/min; Glucose 98 mg/dl (70-99); Lipase 50 U/L (23-300); Potassium 4.3 mmol/L (3.5-5.1); Sodium 138 mmol/L (135-145); eGFR > 60.00
[2024-03-29 07:00] VITALS: BP 103/52
[2024-03-29 08:01] VITALS: BP 173/79
[2024-03-29] MEDS: ROXICODONE 5 MG PO (08:06)
[2024-03-29 09:00] VITALS: BP 150/75
--- NOTE | 2024-03-29 09:04 | CON.CAR ---
Addendum entered and electronically signed by Kiet Murry MD 03/29/24 10:31:
Patient seen an examined in collaboration with [employer]; agree with below.
-Patient appears to have atypical chest pain; has significant underlying anxiety.
-Recent cardiac cath with no obstructive CAD.
-Can be discharged.
Original Note:
Consultation
Consultation Request
Date/Time Consultation Requested: 03/29/24 7:30a
Date/Time Consultation Performed: 03/29/24 8:45a
Requesting Provider: Dr. May
Performing Provider: MELONIE Lozano for Dr. Murry
Reason for Consultation: chest pain
Medical History
-
Chief Complaint: chest pain
History of Present Illness:
Mrs. Webber is a 78 yo female with Takotsubo cardiomyopathy EF 55% (cath 02/29/24 nonobstructive CAD), hypertension, dyslipidemia, mild-moderate , 1st degree AVB, IVCD, PAD s/p left common iliac stent 2016, former tobacco (quit 2016), statin
intolerance, thalassemia, chronic fatigue, chronic pain on Oxycodone per PCP, and lung cancer s/p lobectomy, who is here with c/o of constant chest pain since her cath 02/29/24. We are consulted for chest pain, initial trop < 0.012, EKG w/o acute
ischemic changes. She states taking Oxycodone with improvement of pain, then it recurred. While in route to the ER, EMS gave her a SL NTG and pain also improved, but has recurred. Pain is not better or worse with position changes and there are no
associated symptoms. 02/29/24 cath with nonobstructive CAD. 02/29/24 echo with normal LVEF 55%, apical hypokinesis, mild . Also during hospitalization 02/2024 she had sudden onset of neuro symptoms with associated headache. Neurology was consulted,
there was no evidence of CVA nor TIA but rather migraine with aura.
Past Medical History
Past Medical History: Other (as above)
Social History
Tobacco: Former Smoker
Living: With Family
Family History
Family History: Reviewed & Not Pertinent
Allergies / Home Medications
Allergy/AdvReac Type Severity Reaction Status Date / Time
cephalexin [From Keflex] Allergy Hives Verified 03/29/24 05:25
Influenza Virus Vaccines Allergy Unknown Verified 03/29/24 05:25
NSAIDS (Non-Steroidal Allergy Migraines Verified 03/29/24 05:25
Anti-Inflamma
[Nsaids]
Hwamibi-JBV-GvJ Reductase Allergy acute Verified 03/29/24 05:25
Inhibitor inflammation
[Kjjdirx-Wru-Msl Reductase of liver
Inhibitor]
Sulfa (Sulfonamide Allergy Hives Verified 03/29/24 05:25
Antibiotics)
tramadol AdvReac Severe Unknown Verified 03/29/24 05:25
�Medication �Instructions �Recorded �Confirmed �Type
losartan 25 mg tablet 25 mg PO BID Blood pressure 11/18/21 02/29/24 History
ondansetron 4 mg disintegrating 4 mg PO Q6HPRN PRN nausea and 01/07/22 02/29/24 History
tablet vomiting
pantoprazole 40 mg tablet,delayed 20 mg (1/2 x 40 mg) PO BID 09/01/23 02/29/24 Rx
release (Protonix) Gastrointestinal Issue #0 tabs
aspirin 81 mg chewable tablet 81 mg PO DAILY Blood Clot 09/11/23 02/29/24 History
Prevention/Tx
docusate sodium 100 mg capsule 100 mg PO BID Constipation 02/29/24 02/29/24 History
(Colace)
lorazepam 0.5 mg tablet 0.5 mg PO BID Mental Health/Anxiety 02/29/24 02/29/24 History
mineral oil 15 ml PO DAILYPRN PRN constiaption 02/29/24 02/29/24 History
psyllium 1 packet PO DAILY Gastrointestinal 02/29/24 02/29/24 History
Issue
metoprolol succinate 25 mg 25 mg PO DAILY 30 days #30 tabs 03/03/24 Rx
tablet,extended release 24 hr
oxycodone 5 mg tablet 5 mg PO BID Pain #4 tabs 03/03/24 02/29/24 Rx
Review of Systems
-
History Source: Patient
All other systems: Negative unless noted
Physical Exam
Vital Signs
Temp Pulse Resp BP Pulse Ox
98.5 F 70 19 103/52 97
03/29/24 05:25 03/29/24 07:15 03/29/24 07:15 03/29/24 07:00 03/29/24 07:15
Lab Results
03/29/24 05:44
03/29/24 06:25
Troponin I < 0.012 ng/ml 03/29/24 05:44
Physical Exam
General: Well Developed, Well Nourished and No Apparent Distress
HEENT: Normocephalic, Anicteric and Moist Mucous Membranes
Respiratory: Clear and Non Labored Respirations
Cardiac: S1/S2 and Regular Rhythm
Breast: Deferred by me
GI: Soft, Non Tender, Non Distended and Normal Bowel Sounds
Genito-urinary: No Costovertebral Tender
Musculoskeletal: No Clubbing, No Cyanosis and No Edema
Skin: Warm and Dry
Neuro: AO x 3
Hematologic/Lymphatic: No Lymphadenopathy
Psych: Calm
Impression / Plan
-
Chest pain - recurrent, constant.
- 02/29/24 cath: nonobstructive CAD.
- 02/29/24 echo: normal LVEF 55%, apical hypokinesis, mild .
- seems to improve with Oxycodone, Ativan and/or SL NTG at times.
- non-cardiac chest pain.
- anxiety also playing a role here.
- continue Toprol 25mg QD, ASA 81mg daily.
Dyslipidemia - statin intolerant due to myalgias and elevated LFTs.
- LDL 148 03/01/24.
- discussed PCSK9 inhibitors as OP 03/20/24 office visit and she wants to think about it.
Aortic stenosis - mild on echo.
- monitor.
HTN - stable on meds, continue.
- labile readings in the ER.
Chronic pain - managed by PCP, on Oxycodone.
- recommend physiatry/pain management outpatient evaluation.
Lung cancer - s/p surgery.
- needs follow up with heme/onc.
PAD - stable.
- iliac stenting previously.
- continue ASA.
Data Reviewed
-
EKG: Tracing Personally Visualized and interpreted (SR wtih PVC 84 bpm, LVH with repolarization abn, no ischemic changes.)
Radiology: Report Reviewed by me (CXR: clear lungs)
CT Scan: Report Reviewed by me (CTA 03/29/24: No evidence of pulmonary embolism or thoracic aortic dissection. moderate coronary arterial calcification.)
Medical Tests (Nuc Med, Echo etc): Report Reviewed by me (02/29/24 cath: nonobstructive CAD. ) and Other ( 02/29/24 echo: normal LVEF 55%, apical hypokinesis, mild . )
Labs: Labs Reviewed by me
Old Records: Reviewed
--- NOTE | 2024-03-29 10:18 | ED.GENMED ---
History of Present Illness
General
Chief Complaint: Chest Pain
Source: patient
Exam Limitations: none
Time Seen by Provider: 03/29/24 06:17
History of Present Illness
History of Present Illness:
78-year-old female with ongoing vague chest discomfort since her hospitalization about a month ago. Symptoms are continuous. Worse the last few days. Some radiation to the neck. Mild exertional symptoms however the symptoms have been continuous
for about a month. No pleuritic pain no abdominal pain no fever chills or other complaints
Past History
Past History
ED Past Medical History: Cancer, GERD, HTN, Hypercholesterolemia, NIDDM and Other (Peripheral vascular disease, migraines, Crohn's, thalassemia)
ED Past Surgical History: Cholecystectomy and Other
Patient has exhibited threatening behavior?: No
PSI?: No
Social History
Tobacco: Former smoker
Alcohol: None
Drug: None
Personal:
Living: alone
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
Family History
Family History: Other (Noncontributory)
Review of Systems
Review of Systems
All Other Systems: Not applicable
Constitutional: Denies fever or chills
ABD/GI: Reports no symptoms
: Reports no symptoms
Phy Exam
Physical Exam
Physical Exam:
GENERAL: Alert and oriented in no apparent distress
EYE: Orbits normal.
NECK: Supple, no thyroid palpable
ENT: Pharynx without erythema
CARDIAC: Regular rate and rhythm without any obvious murmurs.
LUNGS: Clear breath sounds,normal
ABDOMEN: Soft, without focal tenderness or distention
NEUROLOGICAL: Alert and oriented , grossly non-focal
SKIN: Warm and dry, no rash or lesion, no discoloration, skin intact.
MUSCULOSKELETAL: No edema,no deformity.Good color
PSYCH: Normal and appropriate interaction.
Scores
Heart Score for Chest Pain Patients
STEMI patient?: No
History: Slightly or Non-Suspicious
ECG: Nonspecific Repolarization
Age: >/= 65 years
Risk Factors: 1 or 2 Risk Factors
Troponin: </= Normal Limit
Heart Score for Chest Pain Patients: 4
Heart Score Risk: 20.3% MACE over next 6 weeks
Course
Orders/Labs/Results
Orders:
Orders
03/29/24 05:23
Electrocardiogram (*1) Urgent
Reason for Study: Chest Pain
Cardiac Monitoring- Treatment ONCE
EKG- Treatment ONCE
O2 Therapy [RESP] Urgent
Titrate/Wean O2 to maintain O2 sat greater than (%): 90
Special Instructions: Maintain sats >/=90%
Pulse Ox/spot Check [RESP] Urgent
Quantity: 1
Special Instructions: ON ROOM AIR
03/29/24 05:44
Complete Blood Count/With Diff Urgent
Troponin I Urgent
03/29/24 06:25
Comprehensive Metabolic Panel Urgent
Lipase Urgent
Comment: ADD ON
03/29/24 06:29
Add On- LAB Urgent
Tests Added?: lipase
03/29/24 06:31
CXR2 [CR Chest - 2 Views ] Urgent
Comment:
Reason For Exam: cp
03/29/24 07:06
CT Chest Angio W/wo Iv Contras Urgent
Comment:
Reason For Exam: Chest pain/heart murmur
03/29/24 08:03
Oxycodone [Roxicodone] 5 mg PO NOW STA
Abnormal Lab Results
03/29/24 03/29/24
05:44 06:25
RBC 5.59 H 10^6/uL
(4.20-5.40)
MCV 72.8 L fL
(81.0-99.0)
MCH 23.6 L pg
(27.0-31.0)
MCHC 32.4 L g/dL
(33.0-37.0)
Creatinine 0.5 L mg/dL
(0.6-1.0)
03/29/24 05:44
03/29/24 06:25
Vital Signs
Initial and Last Documented VS:
Initial Vital Signs
Temp Pulse Resp BP Pulse Ox
98.5 F 88 19 149/89 99
03/29/24 05:25 03/29/24 05:25 03/29/24 05:25 03/29/24 05:25 03/29/24 05:25
Last Documented Vital Signs
Temp Pulse Resp BP Pulse Ox
98.5 F 69 16 150/75 99
03/29/24 05:25 03/29/24 09:45 03/29/24 09:45 03/29/24 09:00 03/29/24 09:45
*Pulse Oximetry
Patient hypoxic: no
*EKG
Interpreted by ED Provider?: Yes
Interpretation: abnormal
Comparison EKG: changes noted
Heart Rate: 84
Rate: normal
Rhythm: sinus
[place]: normal axis
Interval: normal interval
QRS Pattern: left vent hypertrophy
Ischemia: T-wave inversion
*Feed Elevator Worker Interpretation
Rate: normal
Interpretation: normal
Heart Rate: 80
Rhythm: sinus
*Critical Care Note
Total Time (30-74mins, 75-104mins- exclusive of procedures): Not Applicable
Update Note
Update Note:
Seen and cleared by cardiology. I agree. This has been ongoing continuous symptoms for a month with unchanged EKG normal troponin. Also had a recent cardiac cath with nonobstructive disease. No dissection or pulmonary emboli. Stable for
discharge.
ED Attending Note
-
Portions of this chart may have been created with voice recognition software.� Occasional wrong word or��sound alike� substitutions may have occurred due to the inherent limitations of voice recognition software.
Discharge Plan
Departure
Patient Disposition: Home (Routine Discharge)
Date of Disposition: 03/29/24
Time of Disposition: 10:23
Patient with high blood pressure during this ER visit?: Yes
Discharge Problem:
Ongoing chest pain
Instructions: Chest Pain PCP Follow Up, BLOOD PRESSURE
Prescriptions:
No Action
losartan 25 mg tablet
25 mg PO BID
ondansetron 4 mg tablet,disintegrating
4 mg PO Q6HPRN PRN (Reason: nausea and vomiting)
pantoprazole [Protonix] 40 mg tablet,delayed release (DR/EC)
20 mg PO BID Qty: 0 0RF
aspirin 81 mg Tablet,Chewable
81 mg PO DAILY
lorazepam 0.5 mg tablet
0.5 mg PO BID
mineral oil Oil
15 ml PO DAILYPRN PRN (Reason: constiaption)
psyllium Packet
1 packet PO DAILY
docusate sodium [Colace] 100 mg Capsule
100 mg PO BID
metoprolol succinate 25 mg Tablet Extended Release 24 Hr
25 mg PO DAILY 30 Days Qty: 30 0RF
oxycodone 5 mg tablet
5 mg PO BID Qty: 4 0RF
Referrals:
Marlon Hunter MD [Family Provider] - Follow up in 2-3 days
Interventions
Interventions:
*Risk Screen - Suicide Last Done: 03/29/24 05:25
*General Assessment Last Done: 03/29/24 05:55
*Neglect/Abuse Screening Last Done: 03/29/24 05:25
ED- Fall Risk Assessment Last Done: 03/29/24 05:55
*ED COVID-19 Vaccine History Last Done: 03/29/24 05:55
*Nursing Disposition Last Done: 03/29/24 10:33
ED- Cardiac Assessment Last Done: 03/29/24 05:55
Discharge Date and Time
Discharge Date/Time: 03/29/24 10:34
Print Language: CITIZEN [place]
== END 2024-03-29 10:34 | disposition home or self-care (01) ==
LOC: EMR 05:21
PROVIDERS: Emergency Medicine; EMERGENCY PHYSICIAN Emergency Medicine; FAMILY PHYSICIAN Family Medicine
DX: R07.89 Other chest pain (principal); I51.81 Takotsubo syndrome; I25.10 Atherosclerotic heart disease of native coronary artery without angina pectoris; I10 Essential (primary) hypertension; E78.5 Hyperlipidemia, unspecified; E11.51 Type 2 diabetes mellitus with diabetic peripheral angiopathy without gangrene; D56.9 Thalassemia, unspecified; F41.9 Anxiety disorder, unspecified; I35.0 Nonrheumatic aortic (valve) stenosis; I49.3 Ventricular premature depolarization; K21.9 Gastro-esophageal reflux disease without esophagitis; K50.90 Crohn's disease, unspecified, without complications; Z79.82 Long term (current) use of aspirin; Z83.79 Family history of other diseases of the digestive system; Z87.891 Personal history of nicotine dependence; Z90.49 Acquired absence of other specified parts of digestive tract
CPT/HCPCS: 99284; 71046; 71275; 80053; 83690; 84484; 85025; 93005; Q9967